=== PATIENT | female | born 1965 ===

== ENCOUNTER 2018-09-03 00:33 | Inpatient (IN) | payer MEDICAID ==
--- NOTE | 2018-09-03 00:58 | ED PDOC ---
HPI: Abdomen Time Seen by Provider: 09/03/18 00:36 Chief Complaint (Nursing): Abdominal Pain Chief Complaint (Provider): Abdominal Pain History Per: Other (Urgent care) Additional Complaint(s): 52 y/o female with history of gall stones and recently elevated liver enzymes presents to the ED for jaundice, onset x1 day ago. Patient has sever fatigue, myalgia, headache, chills, fever, and especially conjunctiva. Patient's history s per Urgent Care note. "Patient is also positive for Carlos's sign, has petechia in the hard palate, and has enlarged liver." as per pt she is scheduled to get surgery (cholecystectomy) at [facility] later this month but she couldnt wait that long because the jaundice just developed today. Past Medical History Reviewed: Historical Data, Nursing Documentation, Vital Signs Vital Signs: Last Vital Signs Temp 98.4 F 09/03/18 00:43 Pulse 94 H 09/03/18 00:43 Resp 16 09/03/18 00:43 BP 141/70 09/03/18 00:43 Pulse Ox 100 09/03/18 00:43 - Medical History PMH: Diabetes (recently diagnosed), Hypothyroidism Denies: Chronic Kidney Disease Other PMH: Gall Stones - Surgical History Other surgeries: Hysterectomy - Family History Family History: States: Unknown Family Hx - Social History Current smoker - smoking cessation education provided: No Alcohol: None Drugs: Denies - Home Medications Home Medications: Ambulatory Orders Medication Instructions Recorded Ergocalciferol (Vitamin D2) 50,000 unit PO TU 09/03/18 [Vitamin D2] Levothyroxine [Synthroid] 50 mcg PO DAILY 09/03/18 Omeprazole 40 mg PO DAILY PRN 09/03/18 - Allergies Allergies/Adverse Reactions: Allergies Allergy/AdvReac Type Severity Reaction Status Date / Time cortisone Allergy RASH Verified 12/12/15 13:17 piperacillin [From Zosyn] Allergy ITCHING Verified 09/04/18 19:08 tazobactam [From Zosyn] Allergy ITCHING Verified 09/04/18 19:08 Review of Systems ROS Statement: Except As Marked, All Systems Reviewed And Found Negative Constitutional: Positive for: Fever, Chills, Weakness (severe fatigue), Other (Diffuse myalgia) Eyes: Positive for: Conjunctivae Inflammation Skin: Positive for: Jaundice Neurological: Positive for: Headache Physical Exam - Reviewed Nursing Documentation Reviewed: Yes Vital Signs Reviewed: Yes - Physical Exam Appears: Positive for: Uncomfortable Head Exam: Positive for: ATRAUMATIC, NORMOCEPHALIC Skin: Positive for: Normal Color, Jaundice (diffuse) Eye Exam: Positive for: Normal appearance, Scleral icterus ENT: Positive for: Normal ENT Inspection, Other (dry mucous membranes) Neck: Positive for: Normal, Painless ROM, Supple Cardiovascular/Chest: Positive for: Regular Rate, Rhythm. Negative for: Murmur Respiratory: Positive for: Normal Breath Sounds. Negative for: Respiratory Distress Gastrointestinal/Abdominal: Positive for: Tenderness (RUQ and Epigastric) Extremity: Positive for: Normal ROM. Negative for: Pedal Edema, Deformity Neurologic/Psych: Positive for: Alert, Oriented. Negative for: Motor/Sensory Deficits - Laboratory Results Result Diagrams: 09/05/18 08:06 09/05/18 08:06 - ECG O2 Sat by Pulse Oximetry: 100 (RA) Pulse Ox Interpretation: Normal Medical Decision Making Medical Decision Making: Time: 01:01 Initial Impression: Jaundice, abdominal pain, fever rule out ascending cholangitis (known histoyr of gallstones) Initial Plan: * CT Abd pelvis * CMP * Lipase * CBC w/ diff * Morphine 4 mg * IV Fluids * Urine C&S * UA 02:56 US Findings: Enlarged liver measuring 18.1 cm. Diffuse thickening of the gallbladder measuring 6.8 mm. Cholelithiasis. Nondilated common bile duct measuring 5.2 mm. Unremarkable pancreas. Unremarkable aorta. Unremarkable right kidney measuring 13.7x5.1x6 cm. Impression: Cholelithiasis. Contracted gallbladder. Diffuse thickening of the wall of the gallbladder which is probably exaggerated by underdistention. 03:50 Total bilirubin is 5.6. LFT's are extremely elevated. 07:00 Patient care endorsed from provider to Dr. Enriquez pending CT Scribe Attestation: Documented by Rick Colby, acting as a scribe for Jyothi Mcgrath MD. Provider Scribe Attestation: All medical record entries made by the Scribe were at my direction and personally dictated by me. I have reviewed the chart and agree that the record accurately reflects my personal performance of the history, physical exam, medic al decision making, and the department course for this patient. I have also personally directed, reviewed, and agree with the discharge instructions and disposition. Disposition - Clinical Impression Clinical Impression: Abdominal pain - Patient ED Disposition Is Patient to be Admitted: Transfer of Care - Disposition Disposition: Transfer of Care Disposition Time: 07:00 Condition: STABLE Patient Signed Over To: Maty Enriquez
[2018-09-03] MEDS ORDERED: Sodium Chloride 0.9% 1,000 ML IV STA (01:02)
[2018-09-03] MEDS ORDERED: Piperacillin/Tazobact 4.5 GM in Sodium Chloride 0.9% 100 ML IVPB STA (01:07)
[2018-09-03] MEDS ORDERED: Morphine 4 MG/ML VIAL ONE ×4 (01:26→13:15)
[2018-09-03 01:31] LABS: BASO % 1.1 % (0.0-2.0); EOS # 0.1 K/uL (0.0-0.7); EOS % 2.4 % (0.0-4.0); HEMOGLOBIN 10.8 g/dL (12.0-16.0); LYMPH # 1.8 K/uL (1.0-4.3); LYMPH % 40.4 % (20.0-40.0); MEAN CELL VOLUME 93.1 fl (81.0-99.0); MEAN CORPUSCULAR HEMOGLOBIN 31.8 pg (27.0-31.0); MEAN CORPUSCULAR HGB CONC 34.1 g/dL (33.0-37.0); MEAN PLATELET VOLUME 10.8 fl (7.2-11.7); MONO # 0.4 K/uL (0.0-0.8); MONO % 9.6 % (0.0-10.0); NEUT # 2.1 K/uL (1.8-7.0); NEUT % 46.5 % (50.0-75.0); RBC 3.39 Mil/uL (3.80-5.20); RED CELL DISTRIBUTION WIDTH 16.8 % (11.5-14.5); WHITE BLOOD COUNT 4.5 K/uL (4.8-10.8)
[2018-09-03 02:13] LABS: ALB/GLOB RATIO 0.6 (1.0-2.1); ALBUMIN 3.4 g/dL (3.5-5.0); BLOOD UREA NITROGEN 9 mg/dl (7-17); CALCIUM 8.6 mg/dL (8.4-10.2); GFR NON-AFRICAN AMERICAN > 60; LIPASE 124 U/L (23-300)
[2018-09-03 02:51] LABS: ALT/SGPT 1138 U/L (9-52); AST/SGOT 978 U/L (14-36)
[2018-09-03 03:07] LABS: URINE BILIRUBIN SMALL (NEGATIVE); URINE BLOOD NEGATIVE (NEGATIVE); URINE CLARITY CLEAR (Clear); URINE COLOR YELLOW (YELLOW); URINE GLUCOSE (UA) NEGATIVE (NEGATIVE)
[2018-09-03 03:08] LABS: URINE LEUKOCYTE ESTERASE MODERATE Leu/uL (Negative); URINE PROTEIN NEGATIVE (NEGATIVE); URINE UROBILINOGEN 0.2 mg/dL (0.2-1.0)
[2018-09-03 03:10] LABS: URINE AMORPHOUS SEDIMENT FEW /ul (<OCC)
[2018-09-03 03:16] LABS: SQUAMOUS EPITHIAL 10 /hpf (0-5); URINE BACTERIA FEW (<OCC)
[2018-09-03] MEDS ORDERED: Iohexol 240 (50 ml) ONE (03:57)
[2018-09-03] MEDS ORDERED: Iohexol 240 (50 ml) PO ONE (04:01)
[2018-09-03] MEDS ORDERED: Sodium Chloride 0.9% 0 ML IV ONE (06:27)
[2018-09-03] MEDS ORDERED: Iohexol 300 100 ML IJ ONE ×2 (06:27→07:06)
[2018-09-03] MEDS ORDERED: Sodium Chloride 0.9% 50 ML IV ONE (07:06)
--- NOTE | 2018-09-03 07:43 | ED PDOC ---
- Laboratory Results Result Diagrams: 09/08/18 05:30 09/08/18 05:30 - ECG O2 Sat by Pulse Oximetry: 100 (RA) Pulse Ox Interpretation: Normal Medical Decision Making Medical Decision Makin:00 --Patient transferred to this provider pending CT Abd & Pelvis and reevaluation. CT Abd & Pelvis FINDINGS: LUNG BASES: The lung bases appear clear. No pleural effusions are seen. LIVER: Small amount of perihepatic and pelvic ascites. There is diffuse hepatic hypoattenuation compatible with fatty infiltration. The liver is enlarged, 22 cm. GALLBLADDER AND BILE DUCTS: The gallbladder contains multiple calcified gallstones and there is evidence of gallbladder wall thickening and large amount of pericholecystic fluid compatible with acute cholecystitis. PANCREAS: Unremarkable. SPLEEN: The spleen is enlarged measuring 17 cm. ADRENAL GLANDS: There is a 1.5 cm left adrenal nodule most compatible with an adenoma, confirmation with noncontrast CT is recommended. KIDNEYS, URETERS, AND BLADDER: The kidneys appear within normal limits. There is no hydronephrosis or hydroureter. No urinary calculi are seen. STOMACH AND BOWEL: Unremarkable appearance of the stomach and bowel. No evidence of bowel obstruction. No evidence suggesting enteritis or colitis. APPENDIX: No evidence of acute appendicitis on CT examination. PERITONEUM: No free air. LYMPH NODES: No lymphadenopathy is evident. REPRODUCTIVE: Status post complete hysterectomy. VASCULATURE: No evidence of abdominal aortic aneurysm. BONES: No aggressive appearing osseous lesion. No acute osseous pathology evident. IMPRESSION: 1. The gallbladder contains multiple calcified gallstones and there is evidence of gallbladder wall thickening and large amount of pericholecystic fluid compatible with acute cholecystitis. 2. Small amount of perihepatic and pelvic ascites. 3. There is diffuse hepatic hypoattenuation compatible with fatty infiltration. The liver is enlarged, 22 cm. 4. The spleen is enlarged measuring 17 cm. 5. There is a 1.5 cm left adrenal nodule most compatible with an adenoma, con firmation with noncontrast CT is recommended. 6. Status post complete hysterectomy. 12:12 --assistant to the vice president called. Scribe Attestation: Documented by Yumiko Zhong acting as a scribe for Maty Enriquez MD Provider Scribe Attestation: All medical record entries made by the Scribe were at my direction and personally dictated by me. I have reviewed the chart and agree that the record accurately reflects my personal performance of the history, physical exam, medical decision making, and the department course for this patient. I have also personally directed, reviewed, and agree with the discharge instructions and disposition. Disposition - Clinical Impression Clinical Impression: Acute cholecystitis - POA Present On Arrival: None - Disposition Disposition: Admitted as In-Patient Disposition Time: 12:19 Condition: STABLE
--- NOTE | 2018-09-03 09:19 | US ---
Date of service: 09/03/2018 HISTORY: rule out ascending cholangitis COMPARISON: None. TECHNIQUE: Sonographic evaluation of the right upper quadrant of the abdomen. FINDINGS: LIVER: Measures 18.1 cm in length. Normal echogenicity of the liver parenchyma. No mass. No intrahepatic bile duct dilatation. GALLBLADDER: There are multiple gallstones completely filling the gallbladder. There is diffuse increased gallbladder wall thickness which measures 7 mm, which could be related to underdistention. The sonographic Carlos sign is positive. No pericholecystic fluid. COMMON BILE DUCT: Measures 5.2 mm. No stones. No dilatation. PANCREAS: Unremarkable as visualized. No mass. No ductal dilatation. RIGHT KIDNEY: Measures 13.7 cm in length. Normal echogenicity. No calculus, mass, or hydronephrosis. AORTA: No aneurysmal dilatation. IVC: Unremarkable. OTHER FINDINGS: None . IMPRESSION: Cholelithiasis. Gallbladder is contracted which may exaggerate apparent wall thickness which could be related to underdistention The sonographic Carlos's sign is positive. Acute calculus cholecystitis cannot be entirely excluded. Clinical follow-up is advised. A preliminary report was provided by [employer].
[2018-09-03] MEDS ORDERED: Morphine 4 MG/ML VIAL IV STA ×2 (10:04→12:18)
--- NOTE | 2018-09-03 12:55 | CP.PCM.CON ---
History of Present Illness - History of Present Illness History of Present Illness: 52F with PMHx of fatty liver, pre DM, presents to [facility] ED with complaints of abdominal pain and jaundice. Patient states abdominal pain began yesterday. Patient became concerned when epigastric pain kept progressing and she became jaundiced. Patient also reports bilirubnuria. She was scheduled for a laparoscopic cholecystectomy at [facility] on 09/20/18. At time of examination patient denied headache, dizziness, chest pain, shortness of breath, diarrhea, dysuria. Reports generalized abdominal pain worse in epigastric region. PMH: as stated above PSurgHx: laparoscopic hysterectomy Allergies: Cortisone Fam Hx: non-contributory Review of Systems - Review of Systems Review of Systems: 10 pt ROS unremarkable except as stated in HPI Past Patient History - Past Social History Smoking Status: Never Smoked - CARDIAC Hx Cardiac Disorders: No - PULMONARY Hx Respiratory Disorders: No - NEUROLOGICAL Hx Neurological Disorder: No - HEENT Hx HEENT Problems: No - RENAL Hx Chronic Kidney Disease: No - ENDOCRINE/METABOLIC Hx Hypothyroidism: Yes - HEMATOLOGICAL/ONCOLOGICAL Hx Blood Disorders: No - INTEGUMENTARY Hx Dermatological Problems: No - MUSCULOSKELETAL/RHEUMATOLOGICAL Hx Musculoskeletal Disorders: No - GASTROINTESTINAL Hx Fatty Liver Disease: Yes Hx Gall Bladder Disease: Yes (gallstones) - GENITOURINARY/GYNECOLOGICAL Hx Genitourinary Disorders: No - PSYCHIATRIC Hx Psychophysiologic Disorder: No Hx Substance Use: No - SURGICAL HISTORY Hx Surgeries: Yes Hx Hysterectomy: Yes - ANESTHESIA Hx Anesthesia: Yes Hx Anesthesia Reactions: No Hx Malignant Hyperthermia: No Meds Allergies/Adverse Reactions: Allergies Allergy/AdvReac Type Severity Reaction Status Date / Time cortisone Allergy RASH Verified 12/12/15 13:17 Physical Exam - Constitutional Appears: Non-toxic, No Acute Distress Additional comments: jaundice - Head Exam Head Exam: NORMOCEPHALIC - Eye Exam Eye Exam: EOMI, Scleral icterus - ENT Exam ENT Exam: Mucous Membranes Dry Additional comments: sublingual jaundice - Respiratory Exam Respiratory Exam: NORMAL BREATHING PATTERN - Cardiovascular Exam Cardiovascular Exam: +S1, +S2 - GI/Abdominal Exam GI & Abdominal Exam: Soft, Tenderness. absent: Firm, Rigid Additional comments: + Muprhy's - Neurological Exam Neurological exam: Alert, Oriented x3 - Skin Skin Exam: Warm Additional comments: jaundice Results - Vital Signs Recent Vital Signs: Last Vital Signs Temp 98.4 F 09/03/18 10:21 Pulse 71 09/03/18 10:21 Resp 18 09/03/18 10:21 BP 138/64 09/03/18 10:21 Pulse Ox 100 09/03/18 12:14 - Labs Result Diagrams: 09/03/18 01:23 09/03/18 01:42 Labs: Laboratory Results - last 24 hr 09/03/18 09/03/18 09/03/18 01:23 01:42 02:35 WBC 4.5 L RBC 3.39 L Hgb 10.8 L Hct 31.5 L MCV 93.1 D MCH 31.8 H MCHC 34.1 RDW 16.8 H Plt Count 156 MPV 10.8 Neut % (Auto) 46.5 L Lymph % (Auto) 40.4 H Summit % (Auto) 9.6 Eos % (Auto) 2.4 Baso % (Auto) 1.1 Neut # (Auto) 2.1 Lymph # (Auto) 1.8 Summit # (Auto) 0.4 Eos # (Auto) 0.1 Baso # (Auto) 0.0 Sodium 137 Potassium 3.6 Chloride 103 Carbon Dioxide 24 Anion Gap 14 BUN 9 Creatinine 0.5 L Est GFR ( Amer) > 60 Est GFR (Non-Af Amer) > 60 POC Glucose (mg/dL) Random Glucose 110 H Calcium 8.6 Total Bilirubin 5.6 H AST 978 H ALT 1138 H Alkaline Phosphatase 350 H Total Protein 9.1 H Albumin 3.4 L Globulin 5.7 H Albumin/Globulin Ratio 0.6 L Lipase 124 Urine Color Yellow Urine Clarity Clear Urine pH 7.0 Ur Specific Forgan < 1.005 Urine Protein Negative Urine Glucose (UA) Negative Urine Ketones Negative Urine Blood Negative Urine Nitrate Negative Urine Bilirubin Small Urine Urobilinogen 0.2 Ur Leukocyte Esterase Moderate Urine Microscopic WBC 8 H Ur Squamous Epith Cells 10 H Amorphous Sediment Few H Urine Bacteria Few H 09/03/18 06:59 WBC RBC Hgb Hct MCV MCH MCHC RDW Plt Count MPV Neut % (Auto) Lymph % (Auto) Summit % (Auto) Eos % (Auto) Baso % (Auto) Neut # (Auto) Lymph # (Auto) Summit # (Auto) Eos # (Auto) Baso # (Auto) Sodium Potassium Chloride Carbon Dioxide Anion Gap BUN Creatinine Est GFR ( Amer) Est GFR (Non-Af Amer) POC Glucose (mg/dL) 98 Random Glucose Calcium Total Bilirubin AST ALT Alkaline Phosphatase Total Protein Albumin Globulin Albumin/Globulin Ratio Lipase Urine Color Urine Clarity Urine pH Ur Specific Forgan Urine Protein Urine Glucose (UA) Urine Ketones Urine Blood Urine Nitrate Urine Bilirubin Urine Urobilinogen Ur Leukocyte Esterase Urine Microscopic WBC Ur Squamous Epith Cells Amorphous Sediment Urine Bacteria Assessment & Plan - Assessment and Plan (Free Text) Assessment: 52F w/ acute on chronic cholecystitis Elevated LFTs Plan: -NPO -IVF -ABx -Anti-emetics prn -Analgesics prn -MRCP ordered -Recommend GI consult -Further recs per Dr. Faustino Garcia PGY3
[2018-09-03] MEDS ORDERED: Sodium Chloride 0.9% 1,000 ML IV SCH (13:00)
--- NOTE | 2018-09-03 13:10 | CT ---
Date of service: 09/03/2018 PROCEDURE: CT Abdomen and Pelvis with contrast HISTORY: Abdominal pain, jaundice COMPARISON: None available. TECHNIQUE: CT scan of the abdomen and pelvis was performed after administration of intravenous contrast. Oral contrast was administered. Coronal and sagittal reformatted images were obtained. Contrast dose: 95 cc Omnipaque 300 Radiation dose: Total exam DLP = 774.9 mGy-cm. This CT exam was performed using one or more of the following dose reduction techniques: Automated exposure control, adjustment of the mA and/or kV according to patient size, and/or use of iterative reconstruction technique. FINDINGS: LOWER THORAX: The visualized lungs are clear. LIVER: Mild hepatomegaly and fatty liver. No gross lesion or ductal dilatation. GALLBLADDER AND BILE DUCTS: There are multiple small calcified gallstones, wall thickening and enhancement and large amount of pericholecystic fluid. PANCREAS: Normal in size with homogeneous enhancement. No gross lesion or ductal dilatation. SPLEEN: Mild splenomegaly. Normal homogeneous enhancement. ADRENALS: The right adrenal gland is normal. There is a 1.8 cm indeterminate left adrenal gland nodule. KIDNEYS AND URETERS: Normal in size with homogeneous enhancement. No hydronephrosis. No solid mass. VASCULATURE: No aortic aneurysm. There are early aortic atherosclerotic calcifications present BOWEL: The small bowel loops are normal in caliber. There is fecalization of distal small bowel contents and large amount of stool in the colon consistent with constipation. No bowel wall thickening or obstruction. APPENDIX: Normal appendix. PERITONEUM: Small amount of perihepatic fluid and small pelvic ascites. No free air. LYMPH NODES: No enlarged lymph nodes. BLADDER: Well distended and normal in appearance. REPRODUCTIVE: The uterus is surgically absent. BONES: No acute fracture. Within normal limits for the patient's age. OTHER FINDINGS: None. IMPRESSION: 1. Acute calculus cholecystitis. 2. Indeterminate 1.8 cm left adenoid gland nodule. Dedicated CT/MRI scan of the abdomen without and with intravenous contrast with adrenal gland protocol is recommended for further evaluation. 3. Moderate hepatosplenomegaly and fatty liver. A preliminary report was provided by [employer].
--- NOTE | 2018-09-03 13:18 | CP.PCM.HP ---
History of Present Illness - History of Present Illness History of Present Illness: CC: complaints of abdominal pain X 1 day HPI: 52 y/o female with PMHx of fatty liver, cholelithiasis, hypothyroidism, and hyperlipidemia was seen and evaluated in the ED for abdominal pain, and jaundice, onset X 1 day. Patient describes the pain as sharp and intermittent, not exacerbated by food, at times alleviated by antacids. Patient states she went to an Urgent Care facility yesterday due to complaints of fever, myalgia, weakness, darker urine and conjunctival yellowing. She was told at the Urgent care that her liver was enlarged, and she needed to come to a hospital for further evaluation. Patient states she has history of gallstones, diagnosed 3 years ago. Patient states her symptoms have been worsening since May 2018, and patient was referred to general surgery, Dr. Harmon. She was scheduled for a laparoscopic cholecystectomy at [facility] on 09/20/18. Patient denies nausea, vomiting, shortness of breath, chest pain, diarrhea, or constipation at this time. Patient has recent lab work from 08/27/18, which shoes abnormal elevated total bilirubin 1.6, direct bilirubin 1.01, AST 642, and ALT 769, Alk Phos 364, negative Hepatitis panel. Patient is tolerating PO diet. Patient's last meal was [place] for dinner last night. Patient's last bowel movement was yesterday. PMD: Dr. Sorenson PSHx: Radical Hysterectomy with Bilateral Oophorectomy (due to multiple fibroids) Family Hx: mother- passed at age 70 due to pancreatic cancer, IDDM; father- passed at age 72 due to AL, sibling- IDDM and hypothyroidism, other sibling- NIDDM and hypertension Medications: as per med reconciliation Allergies: Cortisone- anaphylactic reaction to IV and PO Social Hx: denies tobacco use, cigarette use occasionally, denies EOTH use, denies illicit drug use Vitals in ED: 98.4 F, 94, 141/70, 16, 100% ED Course: F/U CBC/CMP F/U Blood and Urine Cultures GI Consult- Dr. Gracia Gen Surg consult- Dr. Harmon Pain management NSS IV Abx- Zosyn MRCP Ordered NPO Diet at this time Present on Admission - Present on Admission Any Indicators Present on Admission: No Review of Systems - Constitutional Constitutional: Fatigue, Fever, Malaise, Weakness. absent: Chills - EENT Eyes: absent: Blurred Vision, Change in Vision Nose/Mouth/Throat: Dry Mouth - Cardiovascular Cardiovascular: absent: Chest Pain, Diaphoresis, Dyspnea, Palpitations - Gastrointestinal Gastrointestinal: Abdominal Pain. absent: Constipation, Diarrhea, Nausea, Vomiting - Musculoskeletal Musculoskeletal: Myalgias. absent: Joint Swelling, Limited Range of Motion - Integumentary Integumentary: Jaundice - Neurological Neurological: absent: Dizziness, Numbness, Tingling Past Patient History - Past Social History Smoking Status: Never Smoked - CARDIAC Hx Cardiac Disorders: No - PULMONARY Hx Respiratory Disorders: No - NEUROLOGICAL Hx Neurological Disorder: No - HEENT Hx HEENT Problems: No - RENAL Hx Chronic Kidney Disease: No - ENDOCRINE/METABOLIC Hx Hypothyroidism: Yes - HEMATOLOGICAL/ONCOLOGICAL Hx Blood Disorders: No - INTEGUMENTARY Hx Dermatological Problems: No - MUSCULOSKELETAL/RHEUMATOLOGICAL Hx Musculoskeletal Disorders: No - GASTROINTESTINAL Hx Fatty Liver Disease: Yes Hx Gall Bladder Disease: Yes (gallstones) - GENITOURINARY/GYNECOLOGICAL Hx Genitourinary Disorders: No - PSYCHIATRIC Hx Psychophysiologic Disorder: No Hx Substance Use: No - SURGICAL HISTORY Hx Surgeries: Yes Hx Hysterectomy: Yes - ANESTHESIA Hx Anesthesia: Yes Hx Anesthesia Reactions: No Hx Malignant Hyperthermia: No Meds Allergies/Adverse Reactions: Allergies Allergy/AdvReac Type Severity Reaction Status Date / Time cortisone Allergy RASH Verified 12/12/15 13:17 Physical Exam - Constitutional Appears: Well, Non-toxic, No Acute Distress - Head Exam Head Exam: ATRAUMATIC, NORMOCEPHALIC - Eye Exam Eye Exam: Normal appearance Pupil Exam: NORMAL ACCOMODATION - ENT Exam ENT Exam: Mucous Membranes Dry - Neck Exam Neck exam: Positive for: Full Rom. Negative for: Tenderness - Respiratory Exam Respiratory Exam: Clear to Auscultation Bilateral, NORMAL BREATHING PATTERN. absent: Rales, Rhonchi, Wheezes - Cardiovascular Exam Cardiovascular Exam: REGULAR RHYTHM, +S1, +S2 - GI/Abdominal Exam GI & Abdominal Exam: Guarding Additional comments: + Carlos's - Rectal Exam Rectal Exam: Deferred - Extremities Exam Extremities exam: Positive for: full ROM, normal inspection. Negative for: pedal edema - Neurological Exam Neurological exam: Alert, Oriented x3 - Psychiatric Exam Psychiatric exam: Normal Affect, Normal Mood - Skin Skin Exam: Dry Additional comments: mild Jaundice to skin and icterus Results - Vital Signs Recent Vital Signs: Last Vital Signs Temp 98.4 F 09/03/18 10:21 Pulse 71 09/03/18 10:21 Resp 18 09/03/18 10:21 BP 138/64 09/03/18 10:21 Pulse Ox 100 09/03/18 12:14 - Labs Result Diagrams: 09/03/18 01:23 09/03/18 01:42 Labs: Laboratory Results - last 24 hr 09/03/18 09/03/18 09/03/18 01:23 01:42 02:35 WBC 4.5 L RBC 3.39 L Hgb 10.8 L Hct 31.5 L MCV 93.1 D MCH 31.8 H MCHC 34.1 RDW 16.8 H Plt Count 156 MPV 10.8 Neut % (Auto) 46.5 L Lymph % (Auto) 40.4 H [place] % (Auto) 9.6 Eos % (Auto) 2.4 Baso % (Auto) 1.1 Neut # (Auto) 2.1 Lymph # (Auto) 1.8 [place] # (Auto) 0.4 Eos # (Auto) 0.1 Baso # (Auto) 0.0 Sodium 137 Potassium 3.6 Chloride 103 Carbon Dioxide 24 Anion Gap 14 BUN 9 Creatinine 0.5 L Est GFR ( Amer) > 60 Est GFR (Non-Af Amer) > 60 POC Glucose (mg/dL) Random Glucose 110 H Calcium 8.6 Total Bilirubin 5.6 H AST 978 H ALT 1138 H Alkaline Phosphatase 350 H Total Protein 9.1 H Albumin 3.4 L Globulin 5.7 H Albumin/Globulin Ratio 0.6 L Lipase 124 Urine Color Yellow Urine Clarity Clear Urine pH 7.0 Ur Specific [place] < 1.005 Urine Protein Negative Urine Glucose (UA) Negative Urine Ketones Negative Urine Blood Negative Urine Nitrate Negative Urine Bilirubin Small Urine Urobilinogen 0.2 Ur Leukocyte Esterase Moderate Urine Microscopic WBC 8 H Ur Squamous Epith Cells 10 H Amorphous Sediment Few H Urine Bacteria Few H 09/03/18 06:59 WBC RBC Hgb Hct MCV MCH MCHC RDW Plt Count MPV Neut % (Auto) Lymph % (Auto) [place] % (Auto) Eos % (Auto) Baso % (Auto) Neut # (Auto) Lymph # (Auto) [place] # (Auto) Eos # (Auto) Baso # (Auto) Sodium Potassium Chloride Carbon Dioxide Anion Gap BUN Creatinine Est GFR ( Amer) Est GFR (Non-Af Amer) POC Glucose (mg/dL) 98 Random Glucose Calcium Total Bilirubin AST ALT Alkaline Phosphatase Total Protein Albumin Globulin Albumin/Globulin Ratio Lipase Urine Color Urine Clarity Urine pH Ur Specific [place] Urine Protein Urine Glucose (UA) Urine Ketones Urine Blood Urine Nitrate Urine Bilirubin Urine Urobilinogen Ur Leukocyte Esterase Urine Microscopic WBC Ur Squamous Epith Cells Amorphous Sediment Urine Bacteria Assessment & Plan - Assessment and Plan (Free Text) Assessment: 52 y/o female with PMHx of of fatty liver, gallstones, hypothyroidism, and hyperlipidemia was seen and evaluated in the ED for abdominal pain and jaundice onset X 1 day. Patient has hx of symptomatic cholelithiasis, was scheduled for surgery 09/20/[address] Harmon. Patient with jaundice, scleral icterus, elevated LFTs, pending MRCP. Plan: Acute Gallstone Cholecystitis r/o obstruction - Abdominal CT- acute calculus cholecystitis, indeterminate left adenoid gland nodule, moderate hepatosplenomegaly and fatty liver - Gallbladder US- cholelithiasis, gladder with wall thickness, positive carlos's sign, acute calculus cholecystitis cannot be excluded - AST- 978, ALT- 1138, Total Bilirubin- 5.6, outpatient labs showed negative Hepatitis panel - F/U CBC/CMP, Lipid Panel - F/U Blood and Urine Cultures - GI Consult- Dr. Gracia - Gen Surg consult- Dr. Harmon - MRCP Ordered - Pain management - NSS - Start IV Abx- Zosyn day #1 - NPO Diet at this time Urinary Tract Infection - asymptomatic, acute, positive Urine sample - Urine Culture- Pending - continue IV Abx Hypothyroidism - asymptomatic, chronic - continue home medication Levothyroxine 50 mcg PO DAILY Diet - NPO at this time DVT Prophylaxis - SCDs for now Code status - Full code - Date & Time Date: 09/03/18 Time: 14:34
[2018-09-03] MEDS: Dextrose 5%/Lactated Ringer's 1,000 ML IV SCH ×2 (14:03→22:00)
--- NOTE | 2018-09-03 15:31 | MRI ---
MRCP Indication: Acute rajesh, elevated T bili, elevated LFTs Technique: Multiplanar, multisequence MR images of the abdomen were obtained, including heavily T2 weighted MRCP images of the biliary system. Rotating maximum intensity projection images of the biliary system were generated. A total of images were submitted for review. Comparison: CT abdomen and pelvis with contrast performed 09/03/18, gallbladder ultrasound performed 09/03/18 Findings: Hepatomegaly. No filling defects seen within the common bile duct which appears within normal limits of caliber. Pericholecystic edema/gallbladder-wall thickening. Cholelithiasis. There is no intrahepatic biliary ductal dilatation. Distal most common bile duct is not visualized. Visualized common bile duct appears within normal limits of caliber measuring approximately 3 mm. Filling defect is not identified within the visualized portions of the CBD. The pancreatic duct appears within normal limits of caliber. No filling defects are seen in the pancreatic duct. Splenomegaly. 1.3 x 1.1 cm left adrenal gland nodule, indeterminate. The limited visualized noncontrast adrenal glands, kidneys, spleen, and pancreas appear otherwise unremarkable. No bulky abdominal lymphadenopathy is seen. No ascites. No acute osseous abnormality is detected. Impression: Cholelithiasis. Pericholecystic edema/wall thickening. Correlate clinically for acute cholecystitis. Common bile duct is not visualized at its most distal aspect and distal stone or stricture cannot be excluded. Common bile duct does not appear dilated and no evidence of focal filling defect within the visualized portions of the more proximal common bile duct. Hepatomegaly. Splenomegaly. 1.3 x 1.1 cm left adrenal gland nodule, indeterminate.
[2018-09-03 15:52] LABS: HDL CHOLESTEROL 19 MG/DL (30-70)
[2018-09-03 16:02] LABS: LDL CHOLESTEROL 76 mg/dL (0-129)
--- NOTE | 2018-09-03 16:11 | CP.PCM.CON ---
History of Present Illness - History of Present Illness History of Present Illness: Agree with the medical or surgical instrument maker's note. Additionally pt reports her pain radiates to the right side of her back and neck. She reports the abdominal pain became apparent last night, described as a pulsating constant pain, and earlier in the day she felt body aches and fatigued. LBM: 09/02/18 in AM and normal. She reports having pruritus since yesterday. 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 Pt will eventually need surgery, however Bili elevated, needs GI work up first and Bili to improve prior to surgical intervention. Keep NPO IVF fluids Continue abx GI consulted Monitor labs Pain meds prn. Past Patient History - Past Social History Smoking Status: Never Smoked - CARDIAC Hx Cardiac Disorders: No - PULMONARY Hx Respiratory Disorders: No - NEUROLOGICAL Hx Neurological Disorder: No - HEENT Hx HEENT Problems: No - RENAL Hx Chronic Kidney Disease: No - ENDOCRINE/METABOLIC Hx Endocrine Disorders: Yes - HEMATOLOGICAL/ONCOLOGICAL Hx Blood Disorders: No - INTEGUMENTARY Hx Dermatological Problems: No - MUSCULOSKELETAL/RHEUMATOLOGICAL Hx Musculoskeletal Disorders: No - GASTROINTESTINAL Hx Fatty Liver Disease: Yes Hx Gall Bladder Disease: Yes (gallstones) - GENITOURINARY/GYNECOLOGICAL Hx Genitourinary Disorders: No - PSYCHIATRIC Hx Psychophysiologic Disorder: No - SURGICAL HISTORY Hx Surgeries: Yes Hx Hysterectomy: Yes - ANESTHESIA Hx Anesthesia: Yes Hx Anesthesia Reactions: No Hx Malignant Hyperthermia: No Meds Allergies/Adverse Reactions: Allergies Allergy/AdvReac Type Severity Reaction Status Date / Time cortisone Allergy RASH Verified 12/12/15 13:17 - Medications Medications: Current Medications Hydromorphone HCl (Dilaudid) 1 mg IVP Q4 PRN PRN Reason: Pain, severe (8-10) Piperacillin Sod/Tazobactam (Sod 3.375 gm/ Sodium Chloride) 100 mls @ 100 mls/hr IVPB Q6 [facility]; Protocol Dextrose/Lactated Ringer's (Dextrose 5%/Lactated Ringer's) 1,000 mls @ 125 mls/hr IV .Q8H [facility] Stop: 09/04/18 13:00 Last Admin: 09/03/18 14:03 Dose: 125 mls/hr Levothyroxine Sodium (Synthroid) 50 mcg PO DAILY@0630 [facility] Ondansetron HCl (Zofran Inj) 4 mg IVP Q4 PRN PRN Reason: Nausea/Vomiting Pantoprazole Sodium (Protonix Inj) 40 mg IVP DAILY [facility] Last Admin: 09/03/18 13:52 Dose: 40 mg Results - Vital Signs Recent Vital Signs: Last Vital Signs Temp 99.2 F 09/03/18 15:32 Pulse 74 09/03/18 15:32 Resp 18 09/03/18 15:32 BP 128/64 09/03/18 15:32 Pulse Ox 98 09/03/18 15:25 - Labs Result Diagrams: 09/03/18 01:23 09/03/18 01:42 Labs: Laboratory Results - last 24 hr 09/03/18 09/03/18 09/03/18 01:23 01:42 02:35 WBC 4.5 L RBC 3.39 L Hgb 10.8 L Hct 31.5 L MCV 93.1 D MCH 31.8 H MCHC 34.1 RDW 16.8 H Plt Count 156 MPV 10.8 Neut % (Auto) 46.5 L Lymph % (Auto) 40.4 H [place] % (Auto) 9.6 Eos % (Auto) 2.4 Baso % (Auto) 1.1 Neut # (Auto) 2.1 Lymph # (Auto) 1.8 [place] # (Auto) 0.4 Eos # (Auto) 0.1 Baso # (Auto) 0.0 Sodium 137 Potassium 3.6 Chloride 103 Carbon Dioxide 24 Anion Gap 14 BUN 9 Creatinine 0.5 L Est GFR ( Amer) > 60 Est GFR (Non-Af Amer) > 60 POC Glucose (mg/dL) Random Glucose 110 H Calcium 8.6 Total Bilirubin 5.6 H AST 978 H ALT 1138 H Alkaline Phosphatase 350 H Total Protein 9.1 H Albumin 3.4 L Globulin 5.7 H Albumin/Globulin Ratio 0.6 L Triglycerides Cholesterol LDL Cholesterol Direct HDL Cholesterol Lipase 124 Urine Color Yellow Urine Clarity Clear Urine pH 7.0 Ur Specific [place] < 1.005 Urine Protein Negative Urine Glucose (UA) Negative Urine Ketones Negative Urine Blood Negative Urine Nitrate Negative Urine Bilirubin Small Urine Urobilinogen 0.2 Ur Leukocyte Esterase Moderate Urine Microscopic WBC 8 H Ur Squamous Epith Cells 10 H Amorphous Sediment Few H Urine Bacteria Few H 09/03/18 09/03/18 06:59 15:25 WBC RBC Hgb Hct MCV MCH MCHC RDW Plt Count MPV Neut % (Auto) Lymph % (Auto) [place] % (Auto) Eos % (Auto) Baso % (Auto) Neut # (Auto) Lymph # (Auto) [place] # (Auto) Eos # (Auto) Baso # (Auto) Sodium Potassium Chloride Carbon Dioxide Anion Gap BUN Creatinine Est GFR ( Amer) Est GFR (Non-Af Amer) POC Glucose (mg/dL) 98 Random Glucose Calcium Total Bilirubin AST ALT Alkaline Phosphatase Total Protein Albumin Globulin Albumin/Globulin Ratio Triglycerides 177 H Cholesterol 166 LDL Cholesterol Direct 76 HDL Cholesterol 19 L Lipase Urine Color Urine Clarity Urine pH Ur Specific [place] Urine Protein Urine Glucose (UA) Urine Ketones Urine Blood Urine Nitrate Urine Bilirubin Urine Urobilinogen Ur Leukocyte Esterase Urine Microscopic WBC Ur Squamous Epith Cells Amorphous Sediment Urine Bacteria
[2018-09-03] MEDS: Piperacillin/Tazobact 3.375 GM in Sodium Chloride 0.9% 100 ML IVPB SCH ×2 (17:56→21:20)
[2018-09-03 21:02] LABS: HEPATITIS B SURFACE AG Negative (NEGATIVE)
[2018-09-03 21:08] LABS: HEPATITIS A IGM NEGATIVE (NEGATIVE); HEPATITIS B CORE AB NEGATIVE (NEGATIVE)
[2018-09-03 21:20] LABS: HEPATITIS C ANTIBODY NEGATIVE (NEGATIVE)
[2018-09-03] MEDS ORDERED: Alum-Mag Hydrox-Simethicone Susp (30 mL) PO ONE (22:31)
[2018-09-04] MEDS: Piperacillin/Tazobact 3.375 GM in Sodium Chloride 0.9% 100 ML IVPB SCH ×3 (04:45→17:13)
[2018-09-04] MEDS: Dextrose 5%/Lactated Ringer's 1,000 ML IV SCH ×3 (04:47→12:32)
[2018-09-04] MEDS: Levothyroxine 50 MCG TAB PO SCH (05:52)
[2018-09-04 06:41] LABS: BASO % 0.4 % (0.0-2.0); EOS # 0.1 K/uL (0.0-0.7); EOS % 2.1 % (0.0-4.0); HEMOGLOBIN 10.3 g/dL (12.0-16.0); LYMPH # 1.8 K/uL (1.0-4.3); LYMPH % 42.9 % (20.0-40.0); MEAN CELL VOLUME 94.4 fl (81.0-99.0); MEAN CORPUSCULAR HEMOGLOBIN 31.4 pg (27.0-31.0); MEAN CORPUSCULAR HGB CONC 33.2 g/dL (33.0-37.0); MONO # 0.3 K/uL (0.0-0.8); MONO % 6.6 % (0.0-10.0); NRBC % 0.1 % (0.0-0.0); RBC 3.27 Mil/uL (3.80-5.20); RED CELL DISTRIBUTION WIDTH 16.8 % (11.5-14.5); WHITE BLOOD COUNT 4.2 K/uL (4.8-10.8)
[2018-09-04 06:55] LABS: ALB/GLOB RATIO 0.6 (1.0-2.1); ALBUMIN 3.2 g/dL (3.5-5.0); BLOOD UREA NITROGEN 9 mg/dl (7-17); CALCIUM 8.7 mg/dL (8.4-10.2); GFR NON-AFRICAN AMERICAN > 60
[2018-09-04 07:05] LABS: AST/SGOT 1150 U/L (14-36)
[2018-09-04 07:09] LABS: ALT/SGPT 1116 U/L (9-52)
--- NOTE | 2018-09-04 07:59 | CP.PCM.PN ---
<Tony Wilder - Last Filed: 09/04/18 07:56> Subjective - Date & Time of Evaluation Date of Evaluation: 09/04/18 Time of Evaluation: 07:15 - Subjective Subjective: Patient seen and examined. Reports abdominal pain has improved. Denies fever/chills. Denies nausea/vomiting. Stated she felt dizziness and developed a headache with administration of morphine. Objective - Vital Signs/Intake and Output Vital Signs (last 24 hours): Temp Pulse Resp BP Pulse Ox 98 F 69 19 104/59 L 96 09/04/18 00:10 09/04/18 00:10 09/04/18 00:10 09/04/18 00:10 09/04/18 00:10 - Medications Medications: Current Medications Hydromorphone HCl (Dilaudid) 0.5 mg IVP Q4 PRN PRN Reason: Pain, moderate (4-7) Piperacillin Sod/Tazobactam (Sod 3.375 gm/ Sodium Chloride) 100 mls @ 100 mls/hr IVPB Q6 [facility]; Protocol Last Admin: 09/04/18 04:45 Dose: 100 mls/hr Dextrose/Lactated Ringer's (Dextrose 5%/Lactated Ringer's) 1,000 mls @ 125 mls/hr IV .Q8H [facility] Stop: 09/04/18 13:00 Last Admin: 09/04/18 04:47 Dose: 125 mls/hr Levothyroxine Sodium (Synthroid) 50 mcg PO DAILY@0630 [facility] Last Admin: 09/04/18 05:52 Dose: Not Given Ondansetron HCl (Zofran Inj) 4 mg IVP Q4 PRN PRN Reason: Nausea/Vomiting Last Admin: 09/03/18 17:57 Dose: 4 mg Pantoprazole Sodium (Protonix Inj) 40 mg IVP DAILY [facility] Last Admin: 09/03/18 13:52 Dose: 40 mg - Labs Labs: 09/04/18 05:50 09/04/18 05:50 - Constitutional Appears: Non-toxic, No Acute Distress - Eye Exam Eye Exam: Scleral icterus - ENT Exam ENT Exam: Mucous Membranes Dry - Respiratory Exam Respiratory Exam: NORMAL BREATHING PATTERN - Cardiovascular Exam Cardiovascular Exam: +S1, +S2 - GI/Abdominal Exam GI & Abdominal Exam: Soft. absent: Distended, Firm, Guarding, Rigid, Tenderness, Rebound - Neurological Exam Neurological Exam: Alert, Awake, Oriented x3 - Psychiatric Exam Psychiatric exam: Normal Mood - Skin Skin Exam: Dry, Intact, Warm Assessment and Plan - Assessment and Plan (Free Text) Assessment: 52F w/ acute on chronic cholecystitis transaminitis Plan: -NPO -IVF -ABx -C/w Analgesic/Anti-emetics -F/u ERCP -Will plan for surgery once LFT's are close to normalizing -Further recs per Dr. Faustino Garcia PGY3 <Marc Corrales - Last Filed: 09/04/18 11:20> Objective - Vital Signs/Intake and Output Vital Signs (last 24 hours): Temp Pulse Resp BP Pulse Ox 98.6 F 61 20 110/64 96 09/04/18 08:56 09/04/18 08:56 09/04/18 08:56 09/04/18 08:56 09/04/18 08:56 - Medications Medications: Current Medications Hydromorphone HCl (Dilaudid) 0.5 mg IVP Q4 PRN PRN Reason: Pain, moderate (4-7) Piperacillin Sod/Tazobactam (Sod 3.375 gm/ Sodium Chloride) 100 mls @ 100 mls/hr IVPB Q6 [facility]; Protocol Last Admin: 09/04/18 09:29 Dose: 100 mls/hr Dextrose/Lactated Ringer's (Dextrose 5%/Lactated Ringer's) 1,000 mls @ 125 mls/hr IV .Q8H [facility] Stop: 09/04/18 13:00 Last Admin: 09/04/18 09:28 Dose: 125 mls/hr Levothyroxine Sodium (Synthroid) 50 mcg PO DAILY@0630 [facility] Last Admin: 09/04/18 05:52 Dose: Not Given Ondansetron HCl (Zofran Inj) 4 mg IVP Q4 PRN PRN Reason: Nausea/Vomiting Last Admin: 09/03/18 17:57 Dose: 4 mg Pantoprazole Sodium (Protonix Inj) 40 mg IVP DAILY [facility] Last Admin: 09/04/18 09:30 Dose: 40 mg - Labs Labs: 09/04/18 05:50 09/04/18 05:50 Assessment and Plan - Assessment and Plan (Free Text) Plan: pt seen at bedside, abdominal pain much improved, no nausea or vomiting. afebrile, Tbili 6.7, elevated LFTs. abd: soft, NT, ND, -murphys a/p NPO IVF trend LFTs will monitor Tbili needs to trend down prior to surgery
--- NOTE | 2018-09-04 08:40 | CON ---
DATE: 09/03/2018 HISTORY OF PRESENT ILLNESS: This is a 52-year-old female with history of fatty liver, cholelithiasis, hypothyroidism, hyperlipidemia. She is brought in for nausea and vomiting, lasting for the past couple days or so, epigastric discomfort. The nausea and vomiting now resolved. No diarrhea. At some point, she is scheduled for a cholecystectomy later this month and now come here for LFTs and pain as well. Currently, the patient is lying in bed comfortable, in no apparent distress. PAST MEDICAL HISTORY: As above. SURGICAL HISTORY: As above. MEDICATIONS: Have been reviewed. REVIEW OF SYSTEMS: All other systems are reviewed. Negative apart from HPI. PHYSICAL EXAMINATION: VITAL SIGNS: Here in the hospital, grossly unremarkable. GENERAL: This is a pleasant middle-aged male, lying in bed comfortably, in no apparent distress. HEENT: Head is normocephalic and atraumatic. Eyes, pupils are equally reactive to light bilaterally. No pallor. No icterus. NECK: Supple. Normal range of motion. No lymphadenopathy appreciated. LUNGS: Coarse breath sounds bilaterally. HEART: S1 and S2. Regular rate and rhythm. No murmurs appreciated. ABDOMEN: Soft. Nontender. No rebound. No guarding. RECTAL: Deferred. EXTREMITIES: Pulses felt bilaterally. SKIN: Warm, dry and intact. NEUROLOGIC: A and O x3. LABORATORY DATA: All labs and radiology have been reviewed. Labs include a WBC 4.5, hemoglobin 10.8, hematocrit 31.5, platelets . AST 970, ALT 1138, alk phos 250. Albumin 3.4. Ultrasound showed multiple gallstones, enlarged gallbladder fluid. ASSESSMENT AND PLAN: This is a 52-year-old female with what appears to be cholecystitis and elevated liver function tests, plan for magnetic resonance cholangiopancreatography. We will plan for endoscopic retrograde cholangiopancreatography if magnetic resonance cholangiopancreatography positive. Surgical consult is appreciated. N.p.o. for now, antibiotics, pain control. Thank you for the consult. Catrachito Gracia MD/ PhD cc: [facility] # [id number]
--- NOTE | 2018-09-04 09:05 | CP.PCM.PN ---
Subjective - Date & Time of Evaluation Date of Evaluation: 09/04/18 Time of Evaluation: 09:04 - Subjective Subjective: no overnight events Objective - Vital Signs/Intake and Output Vital Signs (last 24 hours): Temp Pulse Resp BP Pulse Ox 98.6 F 61 20 110/64 96 09/04/18 08:56 09/04/18 08:56 09/04/18 08:56 09/04/18 08:56 09/04/18 08:56 - Medications Medications: Current Medications Hydromorphone HCl (Dilaudid) 0.5 mg IVP Q4 PRN PRN Reason: Pain, moderate (4-7) Piperacillin Sod/Tazobactam (Sod 3.375 gm/ Sodium Chloride) 100 mls @ 100 mls/hr IVPB Q6 [facility]; Protocol Last Admin: 09/04/18 04:45 Dose: 100 mls/hr Dextrose/Lactated Ringer's (Dextrose 5%/Lactated Ringer's) 1,000 mls @ 125 mls/hr IV .Q8H [facility] Stop: 09/04/18 13:00 Last Admin: 09/04/18 04:47 Dose: 125 mls/hr Levothyroxine Sodium (Synthroid) 50 mcg PO DAILY@0630 [facility] Last Admin: 09/04/18 05:52 Dose: Not Given Ondansetron HCl (Zofran Inj) 4 mg IVP Q4 PRN PRN Reason: Nausea/Vomiting Last Admin: 09/03/18 17:57 Dose: 4 mg Pantoprazole Sodium (Protonix Inj) [address] [facility] Last Admin: 09/03/18 13:52 Dose: 40 mg - Labs Labs: 09/04/18 05:50 09/04/18 05:50 - Eye Exam Eye Exam: Scleral icterus - Neck Exam Neck Exam: Normal Inspection - Respiratory Exam Respiratory Exam: Clear to Ausculation Bilateral, NORMAL BREATHING PATTERN - Cardiovascular Exam Cardiovascular Exam: REGULAR RHYTHM - GI/Abdominal Exam GI & Abdominal Exam: Soft, Normal Bowel Sounds Assessment and Plan - Assessment and Plan (Free Text) Assessment: 52 yo female with acute cholecystitis lft trending up, but likely plateau mrcp negative hep panel negative cholecystectomy once bale
--- NOTE | 2018-09-04 09:15 | CP.PCM.PN ---
Subjective - Date & Time of Evaluation Date of Evaluation: 09/04/18 Time of Evaluation: 09:03 - Subjective Subjective: 52 y/o female with PMHx of fatty liver, cholelithiasis, hypothyroidism, and hyperlipidemia was seen and evaluated at bedside for abdominal pain, and jaundice onset 2 days. Patient reports her abdominal pain has improved. Patient reports episode of dizziness and headache with administration of morphine. Patient denies fever, chills, shortness of breath, nausea or vomiting. Objective - Vital Signs/Intake and Output Vital Signs (last 24 hours): Temp Pulse Resp BP Pulse Ox 98.6 F 61 20 110/64 96 09/04/18 08:56 09/04/18 08:56 09/04/18 08:56 09/04/18 08:56 09/04/18 08:56 - Medications Medications: Current Medications Hydromorphone HCl (Dilaudid) 0.5 mg IVP Q4 PRN PRN Reason: Pain, moderate (4-7) Piperacillin Sod/Tazobactam (Sod 3.375 gm/ Sodium Chloride) 100 mls @ 100 mls/hr IVPB Q6 COUNTS INCLUDE 234 BEDS AT THE [facility]; Protocol Last Admin: 09/04/18 04:45 Dose: 100 mls/hr Dextrose/Lactated Ringer's (Dextrose 5%/Lactated Ringer's) 1,000 mls @ 125 mls/hr IV .Q8H COUNTS INCLUDE 234 BEDS AT THE [facility] Stop: 09/04/18 13:00 Last Admin: 09/04/18 04:47 Dose: 125 mls/hr Levothyroxine Sodium (Synthroid) 50 mcg PO DAILY@0630 COUNTS INCLUDE 234 BEDS AT THE [facility] Last Admin: 09/04/18 05:52 Dose: Not Given Ondansetron HCl (Zofran Inj) 4 mg IVP Q4 PRN PRN Reason: Nausea/Vomiting Last Admin: 09/03/18 17:57 Dose: 4 mg Pantoprazole Sodium (Protonix Inj) 40 mg IVP DAILY COUNTS INCLUDE 234 BEDS AT THE [facility] Last Admin: 09/03/18 13:52 Dose: 40 mg - Labs Labs: 09/04/18 05:50 09/04/18 05:50 - Constitutional Appears: Well, Non-toxic, No Acute Distress - Head Exam Head Exam: ATRAUMATIC, NORMOCEPHALIC - Eye Exam Eye Exam: Normal appearance, PERRL Additional comments: + scleral icterus - Cardiovascular Exam Cardiovascular Exam: REGULAR RHYTHM, +S1, +S2 - GI/Abdominal Exam GI & Abdominal Exam: Tenderness, Normal Bowel Sounds Additional comments: + Carlos's - Rectal Exam Rectal Exam: Deferred - Extremities Exam Extremities Exam: Full ROM. absent: Pedal Edema - Back Exam Back Exam: absent: CVA tenderness (L), CVA tenderness (R) - Neurological Exam Neurological Exam: Alert, Awake, Oriented x3 - Psychiatric Exam Psychiatric exam: Normal Affect, Normal Mood Assessment and Plan - Assessment and Plan (Free Text) Assessment: 52 y/o female with PMHx of of fatty liver, gallstones, hypothyroidism, and hyperlipidemia was seen and evaluated in the ED for abdominal pain and jaundice onset X 2 days. Patient has hx of symptomatic cholelithiasis, was scheduled for surgery 09/20/[address] Harmon. Patient with jaundice, scleral icterus, elevated LFTs. Plan: Acute Gallstone Cholecystitis r/o obstruction - Abdominal CT- acute calculus cholecystitis, indeterminate left adenoid gland nodule, moderate hepatosplenomegaly and fatty liver - Gallbladder US- cholelithiasis, gladder with wall thickness, positive carlos's sign, acute calculus cholecystitis cannot be excluded - MRCP- cholelithiasis, pericholecystic edema/wall thickening, common bile duct not visualized at its distal aspect, and distal stone cannot be excluded, no dilation or evidence of focal filling within portions of the more proximal CBD - AST- 978 to 1150, ALT- 1138 to 1116, Total Bilirubin- 5.6 to 6.7 -- all trending up - Hep Panel- Negative - Blood Cultures- pending, no growth after 24 hours - GI Consult- Dr. Gracia, recommendations appreciated - Gen Surg consult- as per surgery- Will plan for surgery once LFT's are close to normalizing, NPO diet, IVF, continue Abx - Start IV Abx- Zosyn day #2 - NPO Diet at this time Urinary Tract Infection - asymptomatic, acute, positive Urine sample - Urine Culture- Pending - continue IV Abx Hyperlipidemia - Lipid Panel- elevated triglycerides 177 - continue to monitor Hypothyroidism - asymptomatic, chronic - continue home medication Levothyroxine 50 mcg PO DAILY DVT Prophylaxis - SCDs for now
[2018-09-04] MEDS ORDERED: DiphenhydrAMINE 50 mg/ml Inj IVP STA (17:19)
[2018-09-04] MEDS ORDERED: methylPREDNISolone 125 MG in Sodium Chloride 0.9% 50 ML IVPB ONE (17:30)
[2018-09-05] MEDS: Dextrose 5%/Lactated Ringer's 1,000 ML IV SCH ×4 (01:11→17:26)
[2018-09-05] MEDS: Levothyroxine 50 MCG TAB PO SCH (05:34)
--- NOTE | 2018-09-05 08:13 | CP.PCM.PN ---
<Jaxson Benson - Last Filed: 09/05/18 08:14> Subjective - Date & Time of Evaluation Date of Evaluation: 09/05/18 Time of Evaluation: 08:11 - Subjective Subjective: SURGERY NOTE FOR DR. LATIF 52F seen and examined at bedside. Patient tolerating clear liquid diet. State abdominal pain is controlled with medication, denies any nausea or vomiting. Antibiotics changed yesterday due to reaction to penicillin. Objective - Vital Signs/Intake and Output Vital Signs (last 24 hours): Temp Pulse Resp BP Pulse Ox 98.5 F 65 19 104/65 98 09/05/18 00:19 09/05/18 00:19 09/05/18 00:19 09/05/18 00:19 09/05/18 00:19 - Medications Medications: Current Medications Hydromorphone HCl (Dilaudid) 0.5 mg IVP Q4 PRN PRN Reason: Pain, moderate (4-7) Ciprofloxacin (Cipro 400mg/200ml Dsw) 400 mg in 200 mls @ 200 mls/hr IVPB Q12 [facility]; Protocol Dextrose/Lactated Ringer's (Dextrose 5%/Lactated Ringer's) 1,000 mls @ 125 mls/hr IV .Q8H [facility] Stop: 09/06/18 00:52 Last Admin: 09/05/18 01:11 Dose: 125 mls/hr Metronidazole (Flagyl 500mg/100ml Ns) 100 mls @ 100 mls/hr IVPB Q8 [facility]; Protocol Ibuprofen (Motrin Tab) 600 mg PO Q6 PRN PRN Reason: Headache Last Admin: 09/04/18 12:21 Dose: 600 mg Levothyroxine Sodium (Synthroid) 50 mcg PO DAILY@0630 [facility] Last Admin: 09/05/18 05:34 Dose: 50 mcg Ondansetron HCl (Zofran Inj) 4 mg IVP Q4 PRN PRN Reason: Nausea/Vomiting Last Admin: 09/03/18 17:57 Dose: 4 mg Pantoprazole Sodium (Protonix Inj) 40 mg IVP DAILY [facility] Last Admin: 09/04/18 09:30 Dose: 40 mg - Labs Labs: 09/04/18 05:50 09/04/18 05:50 - Constitutional Appears: Non-toxic, No Acute Distress - Respiratory Exam Respiratory Exam: NORMAL BREATHING PATTERN - Cardiovascular Exam Cardiovascular Exam: REGULAR RHYTHM, +S1, +S2 - GI/Abdominal Exam GI & Abdominal Exam: Soft, Tenderness (moderately diffusely tender). absent: Distended, Firm, Guarding, Rigid, Rebound - Neurological Exam Neurological Exam: Alert, Awake - Skin Skin Exam: Dry, Intact, Warm Additional comments: jaundice Assessment and Plan - Assessment and Plan (Free Text) Assessment: 52F with cholecysytitis and concern for choledocholithiasis, Transaminitis Plan: Continue liquid diet IVF as needed Pain control Continue antibiotics Awaiting AM labs Monitor trend of LFTs Further recs discuss with Dr. Faustino Benson, PGY3 <Marc Corrales - Last Filed: 09/05/18 09:12> Objective - Vital Signs/Intake and Output Vital Signs (last 24 hours): Temp Pulse Resp BP Pulse Ox 98.2 F 69 20 100/60 95 09/05/18 08:12 09/05/18 08:12 09/05/18 08:12 09/05/18 08:12 09/05/18 08:12 - Medications Medications: Current Medications Hydromorphone HCl (Dilaudid) 0.5 mg IVP Q4 PRN PRN Reason: Pain, moderate (4-7) Ciprofloxacin (Cipro 400mg/200ml Dsw) 400 mg in 200 mls @ 200 mls/hr IVPB Q12 [facility]; Protocol Dextrose/Lactated Ringer's (Dextrose 5%/Lactated Ringer's) 1,000 mls @ 125 mls/hr IV .Q8H [facility] Stop: 09/06/18 00:52 Last Admin: 09/05/18 01:11 Dose: 125 mls/hr Metronidazole (Flagyl 500mg/100ml Ns) 100 mls @ 100 mls/hr IVPB Q8 [facility]; Protocol Ibuprofen (Motrin Tab) 600 mg PO Q6 PRN PRN Reason: Headache Last Admin: 09/04/18 12:21 Dose: 600 mg Levothyroxine Sodium (Synthroid) 50 mcg PO DAILY@0630 [facility] Last Admin: 09/05/18 05:34 Dose: 50 mcg Ondansetron HCl (Zofran Inj) 4 mg IVP Q4 PRN PRN Reason: Nausea/Vomiting Last Admin: 09/03/18 17:57 Dose: 4 mg Pantoprazole Sodium (Protonix Inj) 40 mg IVP DAILY [facility] Last Admin: 09/04/18 09:30 Dose: 40 mg - Labs Labs: 09/05/18 08:06 09/05/18 08:06 Assessment and Plan - Assessment and Plan (Free Text) Plan: no overnight events. Pain much improved. tolerating clears. Tbili trending up now 8.1 gen: awake, alert, NAD, jaundice HEENT: NC/AT, +scleral icterus ABD: soft, some discomfort to epigastric area/RUQ, -murphys a/p: cholethiasis, hyperbilirubinemia trend lfts, tbili in AM f/u GI
[2018-09-05 08:18] LABS: BASO % 0.4 % (0.0-2.0); EOS # 0.1 K/uL (0.0-0.7); EOS % 2.6 % (0.0-4.0); HEMOGLOBIN 10.3 g/dL (12.0-16.0); LYMPH # 1.6 K/uL (1.0-4.3); LYMPH % 38.4 % (20.0-40.0); MEAN CELL VOLUME 94.6 fl (81.0-99.0); MEAN CORPUSCULAR HEMOGLOBIN 31.3 pg (27.0-31.0); MEAN CORPUSCULAR HGB CONC 33.1 g/dL (33.0-37.0); MEAN PLATELET VOLUME 10.4 fl (7.2-11.7); MONO # 0.4 K/uL (0.0-0.8); MONO % 8.9 % (0.0-10.0); NEUT % 49.7 % (50.0-75.0); NRBC % 0.1 % (0.0-0.0); RBC 3.29 Mil/uL (3.80-5.20); RED CELL DISTRIBUTION WIDTH 17.3 % (11.5-14.5); WHITE BLOOD COUNT 4.1 K/uL (4.8-10.8)
[2018-09-05 08:47] LABS: ALB/GLOB RATIO 0.5 (1.0-2.1); ALBUMIN 3.1 g/dL (3.5-5.0); ALT/SGPT 1154 U/L (9-52); AST/SGOT 1215 U/L (14-36); BLOOD UREA NITROGEN 7 mg/dl (7-17); CALCIUM 8.6 mg/dL (8.4-10.2); GFR NON-AFRICAN AMERICAN > 60
[2018-09-05] MEDS ORDERED: Ciprofloxacin 400mg/200ml D5W 400 MG/200 ML BAG IVPB SCH (09:00)
[2018-09-05] MEDS ORDERED: metroNIDAZOLE 500mg/100ml NS 100 ML IVPB SCH (09:00)
--- NOTE | 2018-09-05 09:50 | CP.PCM.PN ---
Subjective - Date & Time of Evaluation Date of Evaluation: 09/05/18 Time of Evaluation: 09:50 - Subjective Subjective: 52 y/o female with PMHx of fatty liver, cholelithiasis, hypothyroidism, and hyperlipidemia was seen and evaluated at bedside for abdominal pain, and jaundice onset 2 days. Patient reports her abdominal pain has improved. Patient is tolerating liquid diet. Patient reports episode of headache, but denies fever, chills, shortness of breath, nausea or vomiting. Patient reports improving symptoms to allergic reaction Objective - Vital Signs/Intake and Output Vital Signs (last 24 hours): Temp Pulse Resp BP Pulse Ox 98.2 F 69 20 100/60 95 09/05/18 08:12 09/05/18 08:12 09/05/18 08:12 09/05/18 08:12 09/05/18 08:12 - Medications Medications: Current Medications Hydromorphone HCl (Dilaudid) 0.5 mg IVP Q4 PRN PRN Reason: Pain, moderate (4-7) Ciprofloxacin (Cipro 400mg/200ml Dsw) 400 mg in 200 mls @ 200 mls/hr IVPB Q12 [facility]; Protocol Dextrose/Lactated Ringer's (Dextrose 5%/Lactated Ringer's) 1,000 mls @ 125 mls/hr IV .Q8H [facility] LICENSE OF [facility] Stop: 09/06/18 00:52 Last Admin: 09/05/18 01:11 Dose: 125 mls/hr Metronidazole (Flagyl 500mg/100ml Ns) 100 mls @ 100 mls/hr IVPB Q8 [facility]; Protocol Ibuprofen (Motrin Tab) 600 mg PO Q6 PRN PRN Reason: Headache Last Admin: 09/04/18 12:21 Dose: 600 mg Levothyroxine Sodium (Synthroid) 50 mcg PO DAILY@0630 [facility] Last Admin: 09/05/18 05:34 Dose: 50 mcg Ondansetron HCl (Zofran Inj) 4 mg IVP Q4 PRN PRN Reason: Nausea/Vomiting Last Admin: 09/03/18 17:57 Dose: 4 mg Pantoprazole Sodium (Protonix Inj) 40 mg IVP DAILY [facility] Last Admin: 09/04/18 09:30 Dose: 40 mg - Labs Labs: 09/05/18 08:06 09/05/18 08:06 - Constitutional Appears: Well, Non-toxic, No Acute Distress - Head Exam Head Exam: ATRAUMATIC, NORMOCEPHALIC - Eye Exam Eye Exam: Normal appearance, PERRL Additional comments: + scleral icterus - ENT Exam ENT Exam: Mucous Membranes Moist - Neck Exam Neck Exam: absent: Full ROM, Lymphadenopathy - Respiratory Exam Respiratory Exam: Clear to Ausculation Bilateral, NORMAL BREATHING PATTERN. absent: Rales, Rhonchi, Wheezes - Cardiovascular Exam Cardiovascular Exam: REGULAR RHYTHM, +S1, +S2 - GI/Abdominal Exam GI & Abdominal Exam: Soft, Tenderness, Normal Bowel Sounds. absent: Firm, Guarding, Rigid - Extremities Exam Extremities Exam: Full ROM. absent: Pedal Edema - Neurological Exam Neurological Exam: Alert, Awake, Oriented x3 - Psychiatric Exam Psychiatric exam: Normal Affect, Normal Mood - Skin Skin Exam: Normal Color Assessment and Plan - Assessment and Plan (Free Text) Assessment: 52 y/o female with PMHx of of fatty liver, gallstones, hypothyroidism, and hyperlipidemia was seen and evaluated in the ED for abdominal pain and jaundice onset X 3 days. Patient has hx of symptomatic cholelithiasis, was scheduled for surgery 09/20/[address] Harmon. Patient with jaundice, scleral icterus, elevated LFTs. Paitne Tbili trending up, plan for cholecystectomy s/p improved Tbitavon castañeda Plan: Acute Gallstone Cholecystitis r/o obstruction with Hyperbilirubenimia - Abdominal CT- acute calculus cholecystitis, indeterminate left adenoid gland nodule, moderate hepatosplenomegaly and fatty liver - Gallbladder US- cholelithiasis, gladder with wall thickness, positive gordon's sign, acute calculus cholecystitis cannot be excluded - MRCP- cholelithiasis, pericholecystic edema/wall thickening, common bile duct not visualized at its distal aspect, and distal stone cannot be excluded, no dilation or evidence of focal filling within portions of the more proximal CBD - (09/05/17)--AST- 1215, ALT- 1154, Total Bilirubin- 8.1 -- all trending up - Hep Panel- Negative - Blood Cultures- pending, no growth after 24 hours - GI Consult- Dr. Gracia, recommendations appreciated - Gen Surg consult- as per surgery- Will plan for surgery once LFT's are close to normalizing, started liquid diet, IVF, continue Abx - Liquid Diet at this time Allergic Reaction likely secondary to Abx Zosyn - acute, resolving - discontinue Zosyn on Day 2 - patient started on Cipro 400 mg and Metronidazole 500 mg Day #1 Urinary Tract Infection - asymptomatic, acute, positive Urine sample - Urine Culture- Pending - continue IV Abx Cipro and Metronidazole Day #1 Hyperlipidemia - Lipid Panel- elevated triglycerides 177 - continue to monitor Hypothyroidism - asymptomatic, chronic - continue home medication Levothyroxine 50 mcg PO DAILY DVT Prophylaxis - SCDs for now
[2018-09-05] MEDS: metroNIDAZOLE 500mg/100ml NS 100 ML IVPB SCH ×2 (09:56→17:26)
[2018-09-05 13:10] LABS: INR 1.4; PROTHROMBIN TIME 15.7 Seconds (9.8-13.1)
[2018-09-05 13:12] LABS: PARTIAL THROMBOPLASTIN TIME 33.1 Seconds (25.6-37.1)
--- NOTE | 2018-09-05 16:38 | CP.PCM.PN ---
Subjective - Date & Time of Evaluation Date of Evaluation: 09/05/18 Time of Evaluation: 16:36 - Subjective Subjective: no overnight events Objective - Vital Signs/Intake and Output Vital Signs (last 24 hours): Temp Pulse Resp BP Pulse Ox 98.2 F 69 20 100/60 100 09/05/18 08:12 09/05/18 08:12 09/05/18 08:12 09/05/18 08:12 09/05/18 10:27 - Medications Medications: Current Medications Hydromorphone HCl (Dilaudid) 0.5 mg IVP Q4 PRN PRN Reason: Pain, moderate (4-7) Ciprofloxacin (Cipro 400mg/200ml Dsw) 400 mg in 200 mls @ 200 mls/hr IVPB Q12 [facility]; Protocol Last Admin: 09/05/18 09:57 Dose: 200 mls/hr Dextrose/Lactated Ringer's (Dextrose 5%/Lactated Ringer's) 1,000 mls @ 125 mls/hr IV .Q8H [facility] Stop: 09/06/18 00:52 Last Admin: 09/05/18 13:07 Dose: 125 mls/hr Metronidazole (Flagyl 500mg/100ml Ns) 100 mls @ 100 mls/hr IVPB Q8 [facility]; Protocol Last Admin: 09/05/18 09:56 Dose: 100 mls/hr Ibuprofen (Motrin Tab) 600 mg PO Q6 PRN PRN Reason: Headache Last Admin: 09/04/18 12:21 Dose: 600 mg Levothyroxine Sodium (Synthroid) 50 mcg PO DAILY@0630 [facility] Last Admin: 09/05/18 05:34 Dose: 50 mcg Ondansetron HCl (Zofran Inj) 4 mg IVP Q4 PRN PRN Reason: Nausea/Vomiting Last Admin: 09/03/18 17:57 Dose: 4 mg Pantoprazole Sodium (Protonix Inj) 40 mg IVP DAILY [facility] Last Admin: 09/05/18 10:02 Dose: 40 mg - Labs Labs: 09/05/18 08:06 09/05/18 08:06 PT 15.7 Seconds (9.8-13.1) H 09/05/18 12:55 INR 1.4 09/05/18 12:55 APTT 33.1 Seconds (25.6-37.1) 09/05/18 12:55 - Head Exam Head Exam: NORMOCEPHALIC - Eye Exam Eye Exam: Scleral icterus - Respiratory Exam Respiratory Exam: Clear to Ausculation Bilateral, NORMAL BREATHING PATTERN - Cardiovascular Exam Cardiovascular Exam: REGULAR RHYTHM - GI/Abdominal Exam GI & Abdominal Exam: Soft, Normal Bowel Sounds Assessment and Plan - Assessment and Plan (Free Text) Assessment: 52 yo female with elevated lft reviewed outpatient labs I suspect this is not due to obstruction but rather intrinsic liver disease (favor auto immune hepatitis [AIH] versus Drug induced liver injury [DILI]) check PHIL, AMA, ASMA liver bx for am
[2018-09-05 16:48] LABS: INR 1.4
[2018-09-05] MEDS ORDERED: DiphenhydrAMINE 50 mg/ml Inj IVP STA (20:27)
[2018-09-06] MEDS ORDERED: DiphenhydrAMINE 50 mg/ml Inj IVP PRN (02:30)
[2018-09-06] MEDS ORDERED: Dextrose 5%/Lactated Ringer's 1,000 ML IV SCH (05:30)
[2018-09-06 06:27] LABS: INR 1.5; PROTHROMBIN TIME 16.6 Seconds (9.8-13.1)
[2018-09-06 06:29] LABS: HEMOGLOBIN 11.1 g/dL (12.0-16.0); MEAN CELL VOLUME 92.2 fl (81.0-99.0); MEAN CORPUSCULAR HEMOGLOBIN 31.7 pg (27.0-31.0); MEAN CORPUSCULAR HGB CONC 34.4 g/dL (33.0-37.0); PARTIAL THROMBOPLASTIN TIME 37.6 Seconds (25.6-37.1); RBC 3.49 Mil/uL (3.80-5.20); RED CELL DISTRIBUTION WIDTH 16.8 % (11.5-14.5); WHITE BLOOD COUNT 4.4 K/uL (4.8-10.8)
[2018-09-06] MEDS: Levothyroxine 50 MCG TAB PO SCH (06:30)
[2018-09-06 06:39] LABS: ALB/GLOB RATIO 0.6 (1.0-2.1); ALBUMIN 3.3 g/dL (3.5-5.0); BLOOD UREA NITROGEN 7 mg/dl (7-17); CALCIUM 8.9 mg/dL (8.4-10.2)
[2018-09-06 06:53] LABS: GFR NON-AFRICAN AMERICAN > 60
[2018-09-06 07:18] LABS: ALT/SGPT 1210 U/L (9-52); AST/SGOT 1095 U/L (14-36)
--- NOTE | 2018-09-06 07:55 | CP.PCM.PN ---
<Jaxson Benson - Last Filed: 09/06/18 07:53> Subjective - Date & Time of Evaluation Date of Evaluation: 09/06/18 Time of Evaluation: 07:53 - Subjective Subjective: SURGERY NOTE FOR DR. LATIF 52F seen and examined at bedside. NAEON, Patient denies pain, nausea, vomiting, fevers, chills. Tolerating diet. Continues to be jaundice Objective - Vital Signs/Intake and Output Vital Signs (last 24 hours): Temp Pulse Resp BP Pulse Ox 99.7 F H 83 18 99/53 L 96 09/06/18 00:30 09/06/18 00:30 09/06/18 00:30 09/06/18 00:30 09/06/18 00:30 - Medications Medications: Current Medications Diphenhydramine HCl (Benadryl) 50 mg IVP Q6 PRN PRN Reason: Allergy symptoms Hydromorphone HCl (Dilaudid) 0.5 mg IVP Q4 PRN PRN Reason: Pain, moderate (4-7) Dextrose/Lactated Ringer's (Dextrose 5%/Lactated Ringer's) 1,000 mls @ 125 mls/hr IV .Q8H [facility] Stop: 09/07/18 05:17 Last Admin: 09/06/18 05:30 Dose: 125 mls/hr Ibuprofen (Motrin Tab) 600 mg PO Q6 PRN PRN Reason: Headache Last Admin: 09/04/18 12:21 Dose: 600 mg Levothyroxine Sodium (Synthroid) 50 mcg PO DAILY@0630 [facility] Last Admin: 09/05/18 05:34 Dose: 50 mcg Ondansetron HCl (Zofran Inj) 4 mg IVP Q4 PRN PRN Reason: Nausea/Vomiting Last Admin: 09/03/18 17:57 Dose: 4 mg Pantoprazole Sodium (Protonix Inj) 40 mg IVP DAILY [facility] Last Admin: 09/05/18 10:02 Dose: 40 mg - Labs Labs: 09/06/18 05:55 09/06/18 05:55 PT 16.6 Seconds (9.8-13.1) H 09/06/18 05:55 INR 1.5 09/06/18 05:55 APTT 37.6 Seconds (25.6-37.1) H 09/06/18 05:55 - Constitutional Appears: Non-toxic, No Acute Distress - Eye Exam Eye Exam: Scleral icterus - Respiratory Exam Respiratory Exam: NORMAL BREATHING PATTERN - Cardiovascular Exam Cardiovascular Exam: REGULAR RHYTHM, +S1, +S2 - GI/Abdominal Exam GI & Abdominal Exam: Soft. absent: Distended, Firm, Guarding, Rigid, Tenderness, Rebound - Neurological Exam Neurological Exam: Alert, Awake - Skin Skin Exam: Dry, Intact, Warm Additional comments: jaundice Assessment and Plan - Assessment and Plan (Free Text) Assessment: 52F with cholecystitis, transaminitis Plan: - IVF - Antibiotics - Scheduled for ERCP and Liver biopsy today - will follow up results Further recs discuss with Dr. Faustino Benson, PGY3 <Marc Corrales - Last Filed: 09/06/18 13:08> Objective - Vital Signs/Intake and Output Vital Signs (last 24 hours): Temp Pulse Resp BP Pulse Ox 98.2 F 68 20 114/66 98 09/06/18 08:07 09/06/18 08:07 09/06/18 08:07 09/06/18 08:07 09/06/18 08:07 - Medications Medications: Current Medications Diphenhydramine HCl (Benadryl) 50 mg IVP Q6 PRN PRN Reason: Allergy symptoms Hydromorphone HCl (Dilaudid) 0.5 mg IVP Q4 PRN PRN Reason: Pain, moderate (4-7) Dextrose/Lactated Ringer's (Dextrose 5%/Lactated Ringer's) 1,000 mls @ 125 mls/hr IV .Q8H [facility] Stop: 09/07/18 05:17 Last Admin: 09/06/18 05:30 Dose: 125 mls/hr Ibuprofen (Motrin Tab) 600 mg PO Q6 PRN PRN Reason: Headache Last Admin: 09/04/18 12:21 Dose: 600 mg Levothyroxine Sodium (Synthroid) 88 mcg PO DAILY@0630 [facility] Ondansetron HCl (Zofran Inj) 4 mg IVP Q4 PRN PRN Reason: Nausea/Vomiting Last Admin: 09/03/18 17:57 Dose: 4 mg Pantoprazole Sodium (Protonix Inj) 40 mg IVP DAILY [facility] Last Admin: 09/06/18 10:13 Dose: 40 mg Phytonadione (Vitamin K Inj) 10 mg SC ONCE ONE Stop: 09/07/18 09:11 - Labs Labs: 09/06/18 05:55 09/06/18 05:55 PT 16.6 Seconds (9.8-13.1) H 09/06/18 05:55 INR 1.5 09/06/18 05:55 APTT 37.6 Seconds (25.6-37.1) H 09/06/18 05:55 Assessment and Plan - Assessment and Plan (Free Text) Plan: no overnight events. jaundiced. Tbili 10 abd: soft, NT, ND, -murphys f/u liver bx repeat labs in am
[2018-09-06] MEDS ORDERED: Phytonadione 10 mg/ml Inj (Adult) SC STA (09:08)
--- NOTE | 2018-09-06 09:54 | CP.PCM.PN ---
Subjective - Date & Time of Evaluation Date of Evaluation: 09/06/18 Time of Evaluation: 09:52 - Subjective Subjective: 52 y/o female with PMHx of fatty liver, cholelithiasis, hypothyroidism, and hyperlipidemia was seen and evaluated at bedside for abdominal pain, and jaundice onset 4 days. Patient reports her abdominal pain has improved. Patient is aware she is NPO at this time for a liver biopsy. Patient is agreeable and understand why she needs biopsy. Patient but denies fever, chills, shortness of breath, nausea or vomiting. Patient states her allergic reaction has improved. Objective - Vital Signs/Intake and Output Vital Signs (last 24 hours): Temp Pulse Resp BP Pulse Ox 98.2 F 68 20 114/66 98 09/06/18 08:07 09/06/18 08:07 09/06/18 08:07 09/06/18 08:07 09/06/18 08:07 - Medications Medications: Current Medications Diphenhydramine HCl (Benadryl) 50 mg IVP Q6 PRN PRN Reason: Allergy symptoms Hydromorphone HCl (Dilaudid) 0.5 mg IVP Q4 PRN PRN Reason: Pain, moderate (4-7) Dextrose/Lactated Ringer's (Dextrose 5%/Lactated Ringer's) 1,000 mls @ 125 mls/hr IV .Q8H [facility] Stop: 09/07/18 05:17 Last Admin: 09/06/18 05:30 Dose: 125 mls/hr Ibuprofen (Motrin Tab) 600 mg PO Q6 PRN PRN Reason: Headache Last Admin: 09/04/18 12:21 Dose: 600 mg Levothyroxine Sodium (Synthroid) 88 mcg PO DAILY@0630 [facility] Ondansetron HCl (Zofran Inj) 4 mg IVP Q4 PRN PRN Reason: Nausea/Vomiting Last Admin: 09/03/18 17:57 Dose: 4 mg Pantoprazole Sodium (Protonix Inj) 40 mg IVP DAILY [facility] Last Admin: 09/05/18 10:02 Dose: 40 mg Phytonadione (Vitamin K Inj) 10 mg SC ONCE ONE Stop: 09/07/18 09:11 - Labs Labs: 09/06/18 05:55 09/06/18 05:55 PT 16.6 Seconds (9.8-13.1) H 09/06/18 05:55 INR 1.5 09/06/18 05:55 APTT 37.6 Seconds (25.6-37.1) H 09/06/18 05:55 - Constitutional Appears: Well, Non-toxic, No Acute Distress - Head Exam Head Exam: ATRAUMATIC, NORMOCEPHALIC - ENT Exam ENT Exam: Mucous Membranes Moist, Normal Exam Additional comments: + scleral icterus - Neck Exam Neck Exam: Full ROM. absent: Lymphadenopathy - Respiratory Exam Respiratory Exam: Clear to Ausculation Bilateral, NORMAL BREATHING PATTERN. absent: Rales, Rhonchi, Wheezes - Cardiovascular Exam Cardiovascular Exam: REGULAR RHYTHM, +S1, +S2 - GI/Abdominal Exam GI & Abdominal Exam: Soft, Normal Bowel Sounds. absent: Firm, Guarding, Rigid - Extremities Exam Extremities Exam: Full ROM, Normal Capillary Refill. absent: Pedal Edema - Neurological Exam Neurological Exam: Alert, Awake, Oriented x3 - Psychiatric Exam Psychiatric exam: Normal Affect, Normal Mood - Skin Additional comments: jaundiced Assessment and Plan - Assessment and Plan (Free Text) Assessment: 52 y/o female with PMHx of of fatty liver, gallstones, hypothyroidism, and hyperlipidemia was seen and evaluated in the ED for abdominal pain and jaundice onset X 4 days. Patient with jaundice, scleral icterus, elevated LFTs. Patient Tbili trending up, plan for CT guided biopsy to r/o autoimmune hepatitis vs drug induced liver injury Plan: Elevated Liver Enzymes likely secondary to liver disease (auto immune hepatitis [AIH] versus Drug induced liver injury [DILI]) - Abdominal CT- acute calculus cholecystitis, indeterminate left adenoid gland nodule, moderate hepatosplenomegaly and fatty liver - Gallbladder US- cholelithiasis, gladder with wall thickness, positive gordon's sign, acute calculus cholecystitis cannot be excluded - MRCP- cholelithiasis, pericholecystic edema/wall thickening, common bile duct not visualized at its distal aspect, and distal stone cannot be excluded, no dilation or evidence of focal filling within portions of the more proximal CBD - (09/05/17)--AST- 1215, ALT- 1154, Total Bilirubin- 8.1 -- all trending up - (09/06/18)-- AST- 1095, ALT- 1210, Total Bilirubin- 10.1 - Hep Panel- Negative - Blood Cultures- pending, no growth after 3 days - CT guided Liver Biopsy- Pending results - GI Consult- Dr. Gracia, recommendation CT guided liver biopsy, patient scheduled for 1:30 PM - Gen Surg consult- as per surgery- Will plan for surgery once LFT's are close to normalizing, IVF - NPO Diet at this time Allergic Reaction likely secondary to Abx - acute, resolving - discontinue Zosyn on Day 2 - discontinue Cipro and Flagyl after Day 1 Urinary Tract Infection - asymptomatic, acute, positive Urine sample - Urine Culture- multiple species noted - no Abx at this time as patient is asymptomatic and allergies to multiple Abx Hyperlipidemia - Lipid Panel- elevated triglycerides 177 - continue to monitor Hypothyroidism - asymptomatic, chronic - change home medication Levothyroxine from 50 mcg to 88 mcg PO DAILY DVT Prophylaxis - SCDs for now
[2018-09-06] MEDS ORDERED: Lidocaine 1% Inj (20ml) ONE (13:55)
[2018-09-06] MEDS ORDERED: Absorbable Gelatin Sponge Size 12-7 ONE (13:59)
[2018-09-06] MEDS ORDERED: Morphine 4 MG/ML VIAL IVP ONE (14:22)
[2018-09-06] MEDS ORDERED: Lactated Ringer's 500 ML IV ONE (15:25)
--- NOTE | 2018-09-06 21:22 | CP.PCM.PN ---
Subjective - Date & Time of Evaluation Date of Evaluation: 09/06/18 Time of Evaluation: 17:00 - Subjective Subjective: no overnight events Objective - Vital Signs/Intake and Output Vital Signs (last 24 hours): Temp Pulse Resp BP Pulse Ox 98.2 F 73 20 100/64 96 09/06/18 19:28 09/06/18 19:28 09/06/18 19:28 09/06/18 19:28 09/06/18 19:28 Intake and Output: 09/06/18 09/07/18 18:59 06:59 Intake Total 100 Balance 100 - Medications Medications: Current Medications Diphenhydramine HCl (Benadryl) 25 mg PO Q6 PRN PRN Reason: Allergy symptoms Last Admin: 09/06/18 21:11 Dose: 25 mg Hydromorphone HCl (Dilaudid) 0.5 mg IVP Q4 PRN PRN Reason: Pain, moderate (4-7) Ibuprofen (Motrin Tab) 600 mg PO Q6 PRN PRN Reason: Headache Last Admin: 09/04/18 12:21 Dose: 600 mg Levothyroxine Sodium (Synthroid) 88 mcg PO DAILY@0630 [facility] Ondansetron HCl (Zofran Inj) 4 mg IVP Q4 PRN PRN Reason: Nausea/Vomiting Last Admin: 09/03/18 17:57 Dose: 4 mg Pantoprazole Sodium (Protonix Inj) 40 mg IVP DAILY [facility] Last Admin: 09/06/18 10:13 Dose: 40 mg Phytonadione (Vitamin K Inj) 10 mg SC ONCE ONE Stop: 09/07/18 09:11 - Labs Labs: 09/06/18 05:55 09/06/18 05:55 PT 16.6 Seconds (9.8-13.1) H 09/06/18 05:55 INR 1.5 09/06/18 05:55 APTT 37.6 Seconds (25.6-37.1) H 09/06/18 05:55 - Head Exam Head Exam: NORMOCEPHALIC - Eye Exam Eye Exam: Scleral icterus - Neck Exam Neck Exam: Normal Inspection - Respiratory Exam Respiratory Exam: Clear to Ausculation Bilateral, NORMAL BREATHING PATTERN - Cardiovascular Exam Cardiovascular Exam: REGULAR RHYTHM - GI/Abdominal Exam GI & Abdominal Exam: Soft, Normal Bowel Sounds Assessment and Plan - Assessment and Plan (Free Text) Assessment: 52 yo female with elevated lft liver bx, path pending daily inr vit k daily x 3 days trend LFT and INR
[2018-09-07] MEDS: Levothyroxine 88 MCG TAB PO SCH (06:08)
[2018-09-07 06:25] LABS: HEMOGLOBIN 10.6 g/dL (12.0-16.0); MEAN CELL VOLUME 94.2 fl (81.0-99.0); MEAN CORPUSCULAR HEMOGLOBIN 31.4 pg (27.0-31.0); MEAN CORPUSCULAR HGB CONC 33.3 g/dL (33.0-37.0); RBC 3.38 Mil/uL (3.80-5.20); RED CELL DISTRIBUTION WIDTH 17.1 % (11.5-14.5); WHITE BLOOD COUNT 4.8 K/uL (4.8-10.8)
[2018-09-07 06:35] LABS: INR 1.5; PROTHROMBIN TIME 16.5 Seconds (9.8-13.1)
[2018-09-07 06:38] LABS: PARTIAL THROMBOPLASTIN TIME 35.8 Seconds (25.6-37.1)
[2018-09-07 07:42] LABS: ALB/GLOB RATIO 0.5 (1.0-2.1); ALBUMIN 3.1 g/dL (3.5-5.0); ALT/SGPT 995 U/L (9-52); AST/SGOT 1044 U/L (14-36); BLOOD UREA NITROGEN 9 mg/dl (7-17); CALCIUM 8.3 mg/dL (8.4-10.2); GFR NON-AFRICAN AMERICAN > 60
[2018-09-07] MEDS ORDERED: Phytonadione 10 mg/ml Inj (Adult) SC ONE (09:10)
[2018-09-07] MEDS ORDERED: Pantoprazole 40 mg EC Tab PO SCH (09:30)
--- NOTE | 2018-09-07 10:45 | CP.PCM.PN ---
<Tony Wilder - Last Filed: 09/07/18 11:06> Subjective - Date & Time of Evaluation Date of Evaluation: 09/07/18 Time of Evaluation: 07:15 - Subjective Subjective: Patient seen and examined. S/p liver biopsy. No acute events over night. Denies abdominal, n/v. Denies fever/chills. Complaining of pruritus, states benadryl provided mild relief. Objective - Vital Signs/Intake and Output Vital Signs (last 24 hours): Temp Pulse Resp BP Pulse Ox 98.2 F 76 18 98/60 L 96 09/07/18 08:24 09/07/18 08:24 09/07/18 08:24 09/07/18 08:24 09/07/18 08:24 - Medications Medications: Current Medications Calamine (Calamine Lotion) 0 applic TOP TID [facility] Diphenhydramine HCl (Benadryl) 25 mg PO Q6 PRN PRN Reason: Allergy symptoms Last Admin: 09/07/18 06:11 Dose: 25 mg Levothyroxine Sodium (Synthroid) 88 mcg PO DAILY@0630 [facility] Last Admin: 09/07/18 06:08 Dose: 88 mcg Ondansetron HCl (Zofran Inj) 4 mg IVP Q4 PRN PRN Reason: Nausea/Vomiting Last Admin: 09/03/18 17:57 Dose: 4 mg - Labs Labs: 09/07/18 04:50 09/07/18 04:50 PT 16.5 Seconds (9.8-13.1) H 09/07/18 04:50 INR 1.5 09/07/18 04:50 APTT 35.8 Seconds (25.6-37.1) 09/07/18 04:50 - Constitutional Appears: No Acute Distress, Other (jaundice) - Eye Exam Eye Exam: Scleral icterus - ENT Exam ENT Exam: Mucous Membranes Moist - Respiratory Exam Respiratory Exam: NORMAL BREATHING PATTERN - Cardiovascular Exam Cardiovascular Exam: +S1, +S2 - GI/Abdominal Exam GI & Abdominal Exam: Soft. absent: Distended, Guarding, Rigid, Tenderness - Neurological Exam Neurological Exam: Alert, Awake, Oriented x3 - Skin Additional comments: jaundice pruritus likely 2/2 hyperbilirubinemia Assessment and Plan - Assessment and Plan (Free Text) Assessment: 52F with cholecystitis, transaminitis Plan: -S/p liver bx -Pruritus likely 2/2 hyperbilirubinemia -Hammad christine @10.1 -AST/ALT eleveated but trending down -F/u liver Bx results -Further recs per Dr. Antoni Garcia PGY3 <Macr Corrales - Last Filed: 09/07/18 12:00> Objective - Vital Signs/Intake and Output Vital Signs (last 24 hours): Temp Pulse Resp BP Pulse Ox 98.2 F 76 18 98/60 L 96 09/07/18 08:24 09/07/18 08:24 09/07/18 08:24 09/07/18 08:24 09/07/18 08:24 - Medications Medications: Current Medications Calamine (Calamine Lotion) 0 applic TOP TID [facility] Diphenhydramine HCl (Benadryl) 25 mg PO Q6 PRN PRN Reason: Allergy symptoms Last Admin: 09/07/18 06:11 Dose: 25 mg Levothyroxine Sodium (Synthroid) 88 mcg PO DAILY@0630 [facility] Last Admin: 09/07/18 06:08 Dose: 88 mcg Ondansetron HCl (Zofran Inj) 4 mg IVP Q4 PRN PRN Reason: Nausea/Vomiting Last Admin: 09/03/18 17:57 Dose: 4 mg - Labs Labs: 09/07/18 04:50 09/07/18 04:50 PT 16.5 Seconds (9.8-13.1) H 09/07/18 04:50 INR 1.5 09/07/18 04:50 APTT 35.8 Seconds (25.6-37.1) 09/07/18 04:50
[2018-09-07] MEDS: Calamine/Zinc Oxide LOTION TOP SCH ×2 (12:06→18:01)
[2018-09-07 13:58] LABS: MITOCHONDRIAL AB TITER 1:20 Titer (< 1:20)
--- NOTE | 2018-09-07 14:23 | CP.PCM.PN ---
<Marina Wong - Last Filed: 09/07/18 14:19> Subjective - Date & Time of Evaluation Date of Evaluation: 09/07/18 Time of Evaluation: 09:00 - Subjective Subjective: Pt seen/eval at bedside; has complaint of pruritis of knees and flanks. No redness/hives noted, though was endorsed that she had redness and hives overnight and was medicated with benadryl with some relief. Otherwise no abdominal pain, chest pain, difficulties breathing. S/p liver biopsy yesterday; no issues with biopsy site dressing. Objective - Vital Signs/Intake and Output Vital Signs (last 24 hours): Temp Pulse Resp BP Pulse Ox 98.2 F 76 18 98/60 L 96 09/07/18 08:24 09/07/18 08:24 09/07/18 08:24 09/07/18 08:24 09/07/18 08:24 - Medications Medications: Current Medications Calamine (Calamine Lotion) 0 applic TOP TID [facility] Last Admin: 09/07/18 12:06 Dose: 1 applic Diphenhydramine HCl (Benadryl) 25 mg PO Q6 PRN PRN Reason: Allergy symptoms Last Admin: 09/07/18 06:11 Dose: 25 mg Levothyroxine Sodium (Synthroid) 88 mcg PO DAILY@0630 [facility] Last Admin: 09/07/18 06:08 Dose: 88 mcg Ondansetron HCl (Zofran Inj) 4 mg IVP Q4 PRN PRN Reason: Nausea/Vomiting Last Admin: 09/03/18 17:57 Dose: 4 mg - Labs Labs: 09/07/18 04:50 09/07/18 04:50 PT 16.5 Seconds (9.8-13.1) H 09/07/18 04:50 INR 1.5 09/07/18 04:50 APTT 35.8 Seconds (25.6-37.1) 09/07/18 04:50 - Constitutional Appears: No Acute Distress - Head Exam Head Exam: NORMAL INSPECTION - Eye Exam Eye Exam: Scleral icterus - ENT Exam ENT Exam: Mucous Membranes Moist - Respiratory Exam Respiratory Exam: Clear to Ausculation Bilateral, NORMAL BREATHING PATTERN - Cardiovascular Exam Cardiovascular Exam: REGULAR RHYTHM, +S1, +S2 - GI/Abdominal Exam GI & Abdominal Exam: Soft Additional comments: dressing on biopsy site, clean and dry - Extremities Exam Extremities Exam: absent: Calf Tenderness, Pedal Edema - Neurological Exam Neurological Exam: Alert, Oriented x3 - Psychiatric Exam Psychiatric exam: Normal Mood - Skin Additional comments: jaundiced Assessment and Plan - Assessment and Plan (Free Text) Assessment: 52 yo female with PMHx of of fatty liver, gallstones, hypothyroidism, and hy perlipidemia was seen and evaluated in the ED for abdominal pain and jaundice onset X 5 days. Patient with jaundice, scleral icterus, elevated LFTs that were trending up and have stabilized since yest; t bili also trending up and stable since yest. S/p liver biopsy 09/06/18 to r/o autoimmune hepatitis vs drug induced liver injury. Positive anti-mitochondrial antibodies (1:20). - Abdominal CT- acute calculus cholecystitis, indeterminate left adenoid gland nodule, moderate hepatosplenomegaly and fatty liver - Gallbladder US- cholelithiasis, gladder with wall thickness, positive gordon's sign, acute calculus cholecystitis cannot be excluded - MRCP- cholelithiasis, pericholecystic edema/wall thickening, common bile duct not visualized at its distal aspect, and distal stone cannot be excluded, no dilation or evidence of focal filling within portions of the more proximal CBD - (09/05/18)--AST- 1215, ALT- 1154, Total Bilirubin- 8.1 -- all trending up - (09/06/18)-- AST- 1095, ALT- 1210, Total Bilirubin- 10.1 - (09/07/18)-- AST 1044, ALT 995, Total bili 10.1 -- stable from day before - Hep Panel- Negative - Blood Cultures- pending, no growth after 4 days Plan: Elevated Liver Enzymes likely secondary to liver disease (auto immune hepatitis [AIH] versus Drug induced liver injury [DILI]) - CT guided Liver Biopsy as per GI recs - GI Consult- Dr. Gracia -- does not believe presentation to be due to obstruction, but rather to liver disease; Vit K x 3 days; further recs pending - Gen Surg consult Dr. Harmon - as per surgery- plan for surgery once LFT's are close to normalizing, IVF - Positive antimitochondrial antibody Pruritis - Likely secondary to elevated bili; may be separate from allergic reaction to abx - Calamine lotion - Consider atarax as rec by GI [employer] consultant Allergic Reaction likely secondary to Abx - Resolving - Discontinued Zosyn on Day 2, and discontinued Cipro and Flagyl after Day 1 - Pt asymptomatic of infection, afebrile, no WBC count Urinary Tract Infection - Asymptomatic, acute, positive urine sample, urine culture with multiple sp ecies - No antibiotics at this time as patient is asymptomatic and allergies to multiple abx Hypothyroidism - Asymptomatic, chronic - Levothyroxine 88 mcg PO daily (changed from home dose of 50 due to elevated TSH) Hyperlipidemia - mildly elevated triglycerides 177 DVT Prophylaxis - SCDs for now <YevgeniyTanjamoe Cool - Last Filed: 09/07/18 15:04> Objective - Vital Signs/Intake and Output Vital Signs (last 24 hours): Temp Pulse Resp BP Pulse Ox 98.2 F 76 18 98/60 L 96 09/07/18 08:24 09/07/18 08:24 09/07/18 08:24 09/07/18 08:24 09/07/18 08:24 - Medications Medications: Current Medications Calamine (Calamine Lotion) 0 applic TOP TID [facility] Last Admin: 09/07/18 12:06 Dose: 1 applic Diphenhydramine HCl (Benadryl) 25 mg PO Q6 PRN PRN Reason: Allergy symptoms Last Admin: 09/07/18 06:11 Dose: 25 mg Levothyroxine Sodium (Synthroid) 88 mcg PO DAILY@0630 [facility] Last Admin: 09/07/18 06:08 Dose: 88 mcg Ondansetron HCl (Zofran Inj) 4 mg IVP Q4 PRN PRN Reason: Nausea/Vomiting Last Admin: 09/03/18 17:57 Dose: 4 mg - Labs Labs: 09/07/18 04:50 09/07/18 04:50 PT 16.5 Seconds (9.8-13.1) H 09/07/18 04:50 INR 1.5 09/07/18 04:50 APTT 35.8 Seconds (25.6-37.1) 09/07/18 04:50 Attending/Attestation - Attestation I have personally seen and examined this patient.: Yes I have fully participated in the care of the patient.: Yes I have reviewed all pertinent clinical information, including history, physical exam and plan: Yes Notes (Text): Abn LFTs with elevated AMA ? PBC - will discuss with GI - Dr Gracia , ? trial of Ursodiol ? -Atarax or Benadyl for itch. - Pt on Phytonadione for prolonged INR - Liver Biopsy pathology pending
--- NOTE | 2018-09-07 16:51 | CP.PCM.PN ---
Subjective - Date & Time of Evaluation Date of Evaluation: 09/07/18 Time of Evaluation: 16:50 - Subjective Subjective: no overnight events Objective - Vital Signs/Intake and Output Vital Signs (last 24 hours): Temp Pulse Resp BP Pulse Ox 98.1 F 69 20 99/63 L 98 09/07/18 16:25 09/07/18 16:25 09/07/18 16:25 09/07/18 16:25 09/07/18 16:25 - Medications Medications: Current Medications Calamine (Calamine Lotion) 0 applic TOP TID [facility] Last Admin: 09/07/18 12:06 Dose: 1 applic Diphenhydramine HCl (Benadryl) 25 mg PO Q6 PRN PRN Reason: Allergy symptoms Last Admin: 09/07/18 06:11 Dose: 25 mg Levothyroxine Sodium (Synthroid) 88 mcg PO DAILY@0630 [facility] Last Admin: 09/07/18 06:08 Dose: 88 mcg Ondansetron HCl (Zofran Inj) 4 mg IVP Q4 PRN PRN Reason: Nausea/Vomiting Last Admin: 09/03/18 17:57 Dose: 4 mg - Labs Labs: 09/07/18 04:50 09/07/18 04:50 PT 16.5 Seconds (9.8-13.1) H 09/07/18 04:50 INR 1.5 09/07/18 04:50 APTT 35.8 Seconds (25.6-37.1) 09/07/18 04:50 - Neck Exam Neck Exam: Normal Inspection - Cardiovascular Exam Cardiovascular Exam: REGULAR RHYTHM - GI/Abdominal Exam GI & Abdominal Exam: Soft, Normal Bowel Sounds Assessment and Plan - Assessment and Plan (Free Text) Assessment: 52 yo female with elevated lft await path if inr stable can dc home atarax for pruritis
[2018-09-08] MEDS: Levothyroxine 88 MCG TAB PO SCH (06:36)
[2018-09-08 07:45] LABS: HEMOGLOBIN 10.6 g/dL (12.0-16.0); MEAN CELL VOLUME 91.9 fl (81.0-99.0); MEAN CORPUSCULAR HEMOGLOBIN 31.8 pg (27.0-31.0); MEAN CORPUSCULAR HGB CONC 34.7 g/dL (33.0-37.0); RBC 3.33 Mil/uL (3.80-5.20); RED CELL DISTRIBUTION WIDTH 17.6 % (11.5-14.5); WHITE BLOOD COUNT 4.7 K/uL (4.8-10.8)
[2018-09-08 07:55] LABS: ALB/GLOB RATIO 0.5 (1.0-2.1); ALBUMIN 3.1 g/dL (3.5-5.0); ALT/SGPT 964 U/L (9-52); BLOOD UREA NITROGEN 7 mg/dl (7-17); CALCIUM 8.3 mg/dL (8.4-10.2); GFR NON-AFRICAN AMERICAN > 60
[2018-09-08 08:12] LABS: AST/SGOT 1023 U/L (14-36)
[2018-09-08 08:15] LABS: INR 1.4; PROTHROMBIN TIME 16.4 Seconds (9.8-13.1)
[2018-09-08 08:18] LABS: PARTIAL THROMBOPLASTIN TIME 35.9 Seconds (25.6-37.1)
[2018-09-08] MEDS: Calamine/Zinc Oxide LOTION TOP SCH ×3 (09:08→16:41)
--- NOTE | 2018-09-08 10:37 | CP.PCM.PN ---
Subjective - Date & Time of Evaluation Date of Evaluation: 09/08/18 Time of Evaluation: 10:35 - Subjective Subjective: feels better today, no pain, bilirubin continues to climb, she is markedly jaundiced, no nausea or vomiting, liver biopsy pending Objective - Vital Signs/Intake and Output Vital Signs (last 24 hours): Temp Pulse Resp BP Pulse Ox 98.6 F 74 18 92/50 L 97 09/08/18 07:56 09/08/18 07:56 09/08/18 07:56 09/08/18 07:56 09/08/18 07:56 - Medications Medications: Current Medications Calamine (Calamine Lotion) 0 applic TOP TID [facility] Last Admin: 09/08/18 09:08 Dose: 1 applic Diphenhydramine HCl (Benadryl) 25 mg PO Q6 PRN PRN Reason: Allergy symptoms Last Admin: 09/07/18 21:32 Dose: 25 mg Levothyroxine Sodium (Synthroid) 88 mcg PO DAILY@0630 [facility] Last Admin: 09/08/18 06:36 Dose: 88 mcg Ondansetron HCl (Zofran Inj) 4 mg IVP Q4 PRN PRN Reason: Nausea/Vomiting Last Admin: 09/03/18 17:57 Dose: 4 mg - Labs Labs: 09/08/18 05:30 09/08/18 05:30 PT 16.4 Seconds (9.8-13.1) H 09/08/18 07:00 INR 1.4 09/08/18 07:00 APTT 35.9 Seconds (25.6-37.1) 09/08/18 07:00 - Constitutional Appears: Non-toxic, No Acute Distress - Eye Exam Eye Exam: EOMI, Normal appearance, Scleral icterus - ENT Exam ENT Exam: Mucous Membranes Moist - Neck Exam Neck Exam: Normal Inspection - Respiratory Exam Respiratory Exam: NORMAL BREATHING PATTERN - Cardiovascular Exam Cardiovascular Exam: REGULAR RHYTHM - GI/Abdominal Exam GI & Abdominal Exam: Soft, Normal Bowel Sounds - Skin Skin Exam: Dry, Intact, Warm Assessment and Plan - Assessment and Plan (Free Text) Assessment: hepatitis, unclear etiology Plan: cont to monitor
--- NOTE | 2018-09-08 10:51 | CP.PCM.PN ---
<Marina Wong - Last Filed: 09/08/18 10:49> Subjective - Date & Time of Evaluation Date of Evaluation: 09/08/18 Time of Evaluation: 08:45 - Subjective Subjective: Pt seen/eval at bedside; no acute events overnight. No abdominal pain, chest pain, difficulties breathing, still has some pruritis, some relief with calamine lotion. S/p liver biopsy 09/06/18; no issues with biopsy site dressing. Objective - Vital Signs/Intake and Output Vital Signs (last 24 hours): Temp Pulse Resp BP Pulse Ox 98.6 F 74 18 92/50 L 97 09/08/18 07:56 09/08/18 07:56 09/08/18 07:56 09/08/18 07:56 09/08/18 07:56 - Medications Medications: Current Medications Calamine (Calamine Lotion) 0 applic TOP TID [facility] Last Admin: 09/08/18 09:08 Dose: 1 applic Diphenhydramine HCl (Benadryl) 25 mg PO Q6 PRN PRN Reason: Allergy symptoms Last Admin: 09/07/18 21:32 Dose: 25 mg Levothyroxine Sodium (Synthroid) 88 mcg PO DAILY@0630 [facility] Last Admin: 09/08/18 06:36 Dose: 88 mcg Ondansetron HCl (Zofran Inj) 4 mg IVP Q4 PRN PRN Reason: Nausea/Vomiting Last Admin: 09/03/18 17:57 Dose: 4 mg - Labs Labs: 09/08/18 05:30 09/08/18 05:30 PT 16.4 Seconds (9.8-13.1) H 09/08/18 07:00 INR 1.4 09/08/18 07:00 APTT 35.9 Seconds (25.6-37.1) 09/08/18 07:00 - Constitutional Appears: No Acute Distress - Head Exam Head Exam: NORMAL INSPECTION - Eye Exam Eye Exam: Normal appearance - Respiratory Exam Respiratory Exam: NORMAL BREATHING PATTERN. absent: Wheezes, Respiratory Distress - Cardiovascular Exam Cardiovascular Exam: REGULAR RHYTHM - GI/Abdominal Exam GI & Abdominal Exam: Soft. absent: Tenderness Additional comments: dressing on biopsy site, clean and dry - Extremities Exam Extremities Exam: Normal Inspection - Neurological Exam Neurological Exam: Alert, Oriented x3 - Psychiatric Exam Psychiatric exam: Normal Mood - Skin Skin Exam: Dry, Warm. absent: Normal Color Additional comments: jaundiced Assessment and Plan - Assessment and Plan (Free Text) Assessment: 52 yo female with PMHx of of fatty liver, gallstones, hypothyroidism, and hyperlipidemia was seen and evaluated in the ED for abdominal pain and jaundice onset X 5 days. Patient with jaundice, scleral icterus, elevated LFTs that were trending up and have stabilized since yest; t bili also trending up and stable since yest. S/p liver biopsy 09/06/18 to r/o autoimmune hepatitis vs drug induced liver injury. Positive anti-mitochondrial antibodies (1:20). - Abdominal CT- acute calculus cholecystitis, indeterminate left adenoid gland nodule, moderate hepatosplenomegaly and fatty liver - Gallbladder US- cholelithiasis, gladder with wall thickness, positive gordon's sign, acute calculus cholecystitis cannot be excluded - MRCP- cholelithiasis, pericholecystic edema/wall thickening, common bile duct not visualized at its distal aspect, and distal stone cannot be excluded, no dilation or evidence of focal filling within portions of the more proximal CBD - (09/05/18)--AST- 1215, ALT- 1154, Total Bilirubin- 8.1 INR 1.4 -- all trending up - (09/06/18)-- AST- 1095, ALT- 1210, Total Bilirubin- 10.1, INR 1. - (09/07/18)-- AST 1044, ALT 995, Total bili 10.1, INR 1.5 -- stable from day before - (09/08/18)-- AST 1023, ALT 964, total bili 11.7, INR 1.4; ast/alt stable, tbili still rising - Hep Panel- Negative - PHIL positive 1:80 nucleolar; Antimitochondrial pos 1:20; Anti-smooth muscle neg - Blood Cultures- final, no growth after 5 days Plan: Elevated Liver Enzymes likely secondary to liver disease (auto immune hepatitis [AIH] versus Drug induced liver injury [DILI]) - s/p CT guided liver biopsy as per GI recs - GI Consult- Dr. Gracia, recs appreciated -- does not believe presentation to be due to obstruction, but rather to liver disease; Vit K x 3 days; monitor INR - Gen Surg consult Dr. Harmon, recs appreciated- continue to monitor t bili - PHIL positive 1:80 nucleolar; Antimitochondrial pos 1:20; Anti-smooth muscle neg - Positive antimitochondrial antibody 1:20, low titer - F/u liver biopsy results Pruritis - Likely secondary to elevated bili; may be separate from allergic reaction to abx - Calamine lotion - Consider atarax as rec by GI financial consultant Allergic Reaction likely secondary to Abx - Resolving - Discontinued Zosyn on Day 2, and discontinued Cipro and Flagyl after Day 1 - Pt asymptomatic of infection, afebrile, no WBC count Urinary Tract Infection - Asymptomatic, acute, positive urine sample, urine culture with multiple species - No antibiotics at this time as patient is asymptomatic and allergies to mul tiple abx Hypothyroidism - Asymptomatic, chronic - Levothyroxine 88 mcg PO daily (changed from home dose of 50 due to elevated TSH) Hyperlipidemia - Mildly elevated triglycerides 177 DVT Prophylaxis - SCDs for now <Tanja Vuong - Last Filed: 09/08/18 15:04> Objective - Vital Signs/Intake and Output Vital Signs (last 24 hours): Temp Pulse Resp BP Pulse Ox 98.6 F 74 18 92/50 L 100 09/08/18 07:56 09/08/18 07:56 09/08/18 07:56 09/08/18 07:56 09/08/18 12:29 - Medications Medications: Current Medications Calamine (Calamine Lotion) 0 applic TOP TID [facility] Last Admin: 09/08/18 13:21 Dose: Not Given Diphenhydramine HCl (Benadryl) 25 mg PO Q6 PRN PRN Reason: Allergy symptoms Last Admin: 09/07/18 21:32 Dose: 25 mg Levothyroxine Sodium (Synthroid) 88 mcg PO DAILY@0630 [facility] Last Admin: 09/08/18 06:36 Dose: 88 mcg Ondansetron HCl (Zofran Inj) 4 mg IVP Q4 PRN PRN Reason: Nausea/Vomiting Last Admin: 09/03/18 17:57 Dose: 4 mg - Labs Labs: 09/08/18 05:30 09/08/18 05:30 PT 16.4 Seconds (9.8-13.1) H 09/08/18 07:00 INR 1.4 09/08/18 07:00 APTT 35.9 Seconds (25.6-37.1) 09/08/18 07:00 Attending/Attestation - Attestation I have personally seen and examined this patient.: Yes I have fully participated in the care of the patient.: Yes I have reviewed all pertinent clinical information, including history, physical exam and plan: Yes Notes (Text): Abn LFT ? Autoimmune Hepatitis -elevated PHIL, AMA -Atarax or Benadyl for itch. - Pt on Phytonadione for prolonged INR - Liver Biopsy pathology pending - increasing Total Bili from 10.1 to 11.7 Coagulopathy Thrombocytopenia
[2018-09-09] MEDS: Levothyroxine 88 MCG TAB PO SCH (06:48)
[2018-09-09 07:54] LABS: ALB/GLOB RATIO 0.5 (1.0-2.1); ALBUMIN 3.1 g/dL (3.5-5.0); BILIRUBIN,DIRECT 11.6 mg/ml (0.0-0.4)
--- NOTE | 2018-09-09 08:35 | CP.PCM.PN ---
Subjective - Date & Time of Evaluation Date of Evaluation: 09/09/18 Time of Evaluation: 08:33 - Subjective Subjective: SURGERY NOTE FOR DR. LATIF 52F seen and examined at bedside. Patient pain improving, tolerating regular diet, s/p liver biopsy two days ago. Continues to complain of pruritis. Objective - Vital Signs/Intake and Output Vital Signs (last 24 hours): Temp Pulse Resp BP Pulse Ox 98.3 F 76 18 104/61 98 09/09/18 08:11 09/09/18 08:11 09/09/18 08:11 09/09/18 08:11 09/09/18 08:11 - Medications Medications: Current Medications Calamine (Calamine Lotion) 0 applic TOP TID [facility] Last Admin: 09/08/18 16:41 Dose: 1 applic Diphenhydramine HCl (Benadryl) 25 mg PO Q6 PRN PRN Reason: Allergy symptoms Last Admin: 09/08/18 22:01 Dose: 25 mg Levothyroxine Sodium (Synthroid) 88 mcg PO DAILY@0630 [facility] Last Admin: 09/09/18 06:48 Dose: 88 mcg Ondansetron HCl (Zofran Inj) 4 mg IVP Q4 PRN PRN Reason: Nausea/Vomiting Last Admin: 09/03/18 17:57 Dose: 4 mg - Labs Labs: 09/08/18 05:30 09/08/18 05:30 PT 16.4 Seconds (9.8-13.1) H 09/08/18 07:00 INR 1.4 09/08/18 07:00 APTT 35.9 Seconds (25.6-37.1) 09/08/18 07:00 - Constitutional Appears: Non-toxic, No Acute Distress - Respiratory Exam Respiratory Exam: Clear to Ausculation Bilateral, NORMAL BREATHING PATTERN - Cardiovascular Exam Cardiovascular Exam: REGULAR RHYTHM, +S1, +S2 - GI/Abdominal Exam GI & Abdominal Exam: Soft. absent: Distended, Firm, Guarding, Rigid, Tenderness, Rebound - Neurological Exam Neurological Exam: Alert, Awake - Skin Skin Exam: Dry, Intact, Warm Additional comments: jaundice Assessment and Plan - Assessment and Plan (Free Text) Assessment: 52F with transaminitis 2/2 unknown cause Plan: - Liver biopsy done - pending results - continue diet Further recs discuss with Dr. Faustino Benson, PGY3
[2018-09-09] MEDS: Calamine/Zinc Oxide LOTION TOP SCH ×3 (09:42→17:01)
--- NOTE | 2018-09-09 11:53 | CP.PCM.PN ---
Subjective - Date & Time of Evaluation Date of Evaluation: 09/09/18 Time of Evaluation: 11:53 - Subjective Subjective: Patient seen sitting in chair in no acute distress. Uneventful evening. Tolerating regular PO diet. She denies chest pain, shortness of breath, abdominal pain, nausea and vomiting but admits to continued pruritis. S/p 09/06/18, pending final results. Objective - Vital Signs/Intake and Output Vital Signs (last 24 hours): Temp Pulse Resp BP Pulse Ox 98.3 F 76 18 104/61 98 09/09/18 08:11 09/09/18 08:11 09/09/18 08:11 09/09/18 08:11 09/09/18 08:11 - Medications Medications: Current Medications Calamine (Calamine Lotion) 0 applic TOP TID [facility] Last Admin: 09/09/18 09:42 Dose: 1 applic Diphenhydramine HCl (Benadryl) 25 mg PO Q6 PRN PRN Reason: Allergy symptoms Last Admin: 09/08/18 22:01 Dose: 25 mg Levothyroxine Sodium (Synthroid) 88 mcg PO DAILY@0630 [facility] Last Admin: 09/09/18 06:48 Dose: 88 mcg Ondansetron HCl (Zofran Inj) 4 mg IVP Q4 PRN PRN Reason: Nausea/Vomiting Last Admin: 09/03/18 17:57 Dose: 4 mg - Labs Labs: 09/08/18 05:30 09/08/18 05:30 PT 16.4 Seconds (9.8-13.1) H 09/08/18 07:00 INR 1.4 09/08/18 07:00 APTT 35.9 Seconds (25.6-37.1) 09/08/18 07:00 - Constitutional Appears: Non-toxic, No Acute Distress - Head Exam Head Exam: NORMAL INSPECTION - Eye Exam Eye Exam: Normal appearance - ENT Exam ENT Exam: Mucous Membranes Moist - Respiratory Exam Respiratory Exam: NORMAL BREATHING PATTERN. absent: Respiratory Distress - Cardiovascular Exam Cardiovascular Exam: REGULAR RHYTHM - GI/Abdominal Exam GI & Abdominal Exam: Soft. absent: Guarding, Tenderness Additional comments: dressing on biopsy site, clean and dry, surrounding area non-erythematous, non- tender - Neurological Exam Neurological Exam: Alert, Awake, Normal Gait - Psychiatric Exam Psychiatric exam: Normal Affect, Normal Mood - Skin Skin Exam: Dry, Intact, Warm. absent: Normal Color Additional comments: diffuse jaundiced Assessment and Plan - Assessment and Plan (Free Text) Assessment: 52 yo female with PMHx of of fatty liver, gallstones, hypothyroidism, and hyperlipidemia was seen and evaluated in the ED for abdominal pain and jaundice onset X 5 days. Patient with jaundice, scleral icterus, elevated LFTs that were trending up and have stabilized since yest; t bili also trending up and stable since yest. S/p liver biopsy 09/06/18 to r/o autoimmune hepatitis vs drug induced liver injury. Positive anti-mitochondrial antibodies (1:20). - Abdominal CT- acute calculus cholecystitis, indeterminate left adenoid gland nodule, moderate hepatosplenomegaly and fatty liver - Gallbladder US- cholelithiasis, gladder with wall thickness, positive gordon's sign, acute calculus cholecystitis cannot be excluded - MRCP- cholelithiasis, pericholecystic edema/wall thickening, common bile duct not visualized at its distal aspect, and distal stone cannot be excluded, no dilation or evidence of focal filling within portions of the more proximal CBD - (09/05/18)-- AST- 1215, ALT- 1154, Total Bilirubin- 8.1 INR 1.4 -- all trending up - (09/06/18)-- AST- 1095, ALT- 1210, Total Bilirubin- 10.1, INR 1. - (09/07/18)-- AST 1044, ALT 995, Total bili 10.1, INR 1.5 -- stable from day be fore - (09/08/18)-- AST 1023, ALT 964, total bili 11.7, INR 1.4; ast/alt stable, tbili still rising - (09/09/18)--AST 1182, ALT 950, total bili 13.5, INR 1.4; ast up from day prior, alt stable, tbili still rising - Hep Panel- Negative - PHIL positive 1:80 nucleolar; Antimitochondrial pos 1:20; Anti-smooth muscle neg - Blood Cultures- final, no growth after 5 days Plan: Elevated Liver Enzymes likely secondary to liver disease (auto immune hepatitis [AIH] versus Drug induced liver injury [DILI]) - s/p CT guided liver biopsy as per GI recs - GI Consult- Dr. Gracia, recs appreciated -- does not believe presentation to be due to obstruction, but rather to liver disease; Vit K x 3 days; monitor INR - Gen Surg consult Dr. Harmon, recs appreciated- continue to monitor t bili - PHIL positive 1:80 nucleolar; Antimitochondrial pos 1:20; Anti-smooth muscle neg - Positive antimitochondrial antibody 1:20, low titer - F/u liver biopsy results Pruritis - Likely secondary to elevated bili; may be separate from allergic reaction to abx - Calamine lotion - Consider atarax as rec by GI medical economics consultant Allergic Reaction likely secondary to Abx - Resolving - Discontinued Zosyn on Day 2, and discontinued Cipro and Flagyl after Day 1 - Pt asymptomatic of infection, afebrile, no WBC count Urinary Tract Infection - Asymptomatic, acute, positive urine sample, urine culture with multiple species - No antibiotics at this time as patient is asymptomatic and allergies to multiple abx Hypothyroidism - Asymptomatic, chronic - Levothyroxine 88 mcg PO daily (changed from home dose of 50 due to elevated TSH) Hyperlipidemia - Mildly elevated triglycerides 177 (09/03/18) DVT Prophylaxis - SCDs for now
[2018-09-10] MEDS: Levothyroxine 88 MCG TAB PO SCH (05:51)
[2018-09-10 06:41] LABS: HEMOGLOBIN 10.4 g/dL (12.0-16.0); MEAN CELL VOLUME 94.2 fl (81.0-99.0); RBC 3.26 Mil/uL (3.80-5.20); RED CELL DISTRIBUTION WIDTH 17.2 % (11.5-14.5); WHITE BLOOD COUNT 5.6 K/uL (4.8-10.8)
[2018-09-10 06:47] LABS: ALB/GLOB RATIO 0.5 (1.0-2.1); ALBUMIN 3.2 g/dL (3.5-5.0); ALT/SGPT 935 U/L (9-52); BLOOD UREA NITROGEN 9 mg/dl (7-17); CALCIUM 8.6 mg/dL (8.4-10.2); GFR NON-AFRICAN AMERICAN > 60
[2018-09-10 06:53] LABS: AST/SGOT 1228 U/L (14-36)
--- NOTE | 2018-09-10 08:00 | CP.PCM.PN ---
<Tony Wilder - Last Filed: 09/10/18 08:01> Subjective - Date & Time of Evaluation Date of Evaluation: 09/10/18 Time of Evaluation: 07:00 - Subjective Subjective: Patient seen and examined. No acute events over night. Passing flatus. Objective - Vital Signs/Intake and Output Vital Signs (last 24 hours): Temp Pulse Resp BP Pulse Ox 98.8 F 93 H 19 103/60 96 09/10/18 01:22 09/10/18 01:22 09/10/18 01:22 09/10/18 01:22 09/10/18 01:22 - Medications Medications: Current Medications Calamine (Calamine Lotion) 0 applic TOP TID [facility] Last Admin: 09/09/18 17:01 Dose: 1 applic Diphenhydramine HCl (Benadryl) 25 mg PO Q6 PRN PRN Reason: Allergy symptoms Last Admin: 09/09/18 22:13 Dose: 25 mg Levothyroxine Sodium (Synthroid) 88 mcg PO DAILY@0630 [facility] Last Admin: 09/10/18 05:51 Dose: 88 mcg Ondansetron HCl (Zofran Inj) 4 mg IVP Q4 PRN PRN Reason: Nausea/Vomiting Last Admin: 09/03/18 17:57 Dose: 4 mg - Labs Labs: 09/10/18 06:05 09/10/18 06:05 PT 16.4 Seconds (9.8-13.1) H 09/08/18 07:00 INR 1.4 09/08/18 07:00 APTT 35.9 Seconds (25.6-37.1) 09/08/18 07:00 - Constitutional Appears: No Acute Distress, Other (jaundice) - Head Exam Head Exam: ATRAUMATIC - Eye Exam Eye Exam: Scleral icterus - Respiratory Exam Respiratory Exam: NORMAL BREATHING PATTERN - Cardiovascular Exam Cardiovascular Exam: +S1, +S2 - GI/Abdominal Exam GI & Abdominal Exam: Soft. absent: Distended, Firm, Guarding, Rigid, Tenderness - Neurological Exam Neurological Exam: Alert, Awake, Oriented x3 - Psychiatric Exam Psychiatric exam: Normal Mood - Skin Skin Exam: Dry, Warm Additional comments: jaundice Assessment and Plan - Assessment and Plan (Free Text) Assessment: 52F with hepatitis Plan: Resume regular diet INR 1.4 F/u liver Bx F/u AM labs F/u GI recs Further recs per Dr. Faustino Garcia PGY3 <Charlie Woods - Last Filed: 09/10/18 11:29> Subjective - Date & Time of Evaluation Time of Evaluation: 10:00 - Subjective Subjective: Patient was seen and examined at the bedside. Agree with resident's note above. Objective - Vital Signs/Intake and Output Vital Signs (last 24 hours): Temp Pulse Resp BP Pulse Ox 98.5 F 72 20 109/61 98 09/10/18 08:48 09/10/18 08:48 09/10/18 08:48 09/10/18 08:48 09/10/18 08:48 - Medications Medications: Current Medications Calamine (Calamine Lotion) 0 applic TOP TID [facility] Last Admin: 09/10/18 09:27 Dose: 120 applic Diphenhydramine HCl (Benadryl) 25 mg PO Q6 PRN PRN Reason: Allergy symptoms Last Admin: 09/09/18 22:13 Dose: 25 mg Levothyroxine Sodium (Synthroid) 88 mcg PO DAILY@0630 [facility] Last Admin: 09/10/18 05:51 Dose: 88 mcg Ondansetron HCl (Zofran Inj) 4 mg IVP Q4 PRN PRN Reason: Nausea/Vomiting Last Admin: 09/03/18 17:57 Dose: 4 mg - Labs Labs: 09/10/18 06:05 09/10/18 06:05 PT 16.4 Seconds (9.8-13.1) H 09/08/18 07:00 INR 1.4 09/08/18 07:00 APTT 35.9 Seconds (25.6-37.1) 09/08/18 07:00 Assessment and Plan - Assessment and Plan (Free Text) Plan: - No general surgery intervention at present time - repeat labs in am - GI follow up
[2018-09-10 08:49] VITALS: BP 109/61; PULSE 72; RESP 20; TEMP 98.5; O2SAT 98
[2018-09-10] MEDS: Calamine/Zinc Oxide LOTION TOP SCH ×2 (09:27→12:03)
--- NOTE | 2018-09-10 09:42 | CT ---
PROCEDURE: Date of procedure: 09/06/2018 Procedure: 1. Ultrasound-guided core liver biopsy, CPT 29352 2. Ultrasound guidance for biopsy, 55693 Medications: The patient is sedated by the anesthesiologist. HISTORY: Abnormal LFTs TECHNIQUE: Following informed consent and procedure time-out, the patient was placed supine on bed and limited ultrasound showed a normal appearing left hepatic lobe. After patient abdomen was prepped and draped in the usual sterile fashion and the skin was anesthetized with 2% lidocaine, an 18 gauge core needle was advanced percutaneously under direct ultrasound guidance into the left hepatic lobe. Upon confirmation of needle position, three 18 gauge core specimens were obtained and sent for routine pathology. The biopsy to tract was then embolized with Gelfoam. A post biopsy ultrasound showed no hematoma. A dressing was applied. IMPRESSION: Ultrasound-guided core biopsy left hepatic lobe. There were no immediate complications.
--- NOTE | 2018-09-10 11:12 | CP.PCM.PN ---
Subjective - Date & Time of Evaluation Date of Evaluation: 09/10/18 Time of Evaluation: 09:30 - Subjective Subjective: Pt seen/eval at bedside; sitting at bedside. No acute events overnight. Tbili still trending up; no abdominal pain or discomfort. No chest pain, SOB. S/p liver biopsy 09/06/18; no issues with biopsy site, dressing removed yester day. Objective - Vital Signs/Intake and Output Vital Signs (last 24 hours): Temp Pulse Resp BP Pulse Ox 98.5 F 72 20 109/61 98 09/10/18 08:48 09/10/18 08:48 09/10/18 08:48 09/10/18 08:48 09/10/18 08:48 - Medications Medications: Current Medications Calamine (Calamine Lotion) 0 applic TOP TID [facility] Last Admin: 09/10/18 09:27 Dose: 120 applic Diphenhydramine HCl (Benadryl) 25 mg PO Q6 PRN PRN Reason: Allergy symptoms Last Admin: 09/09/18 22:13 Dose: 25 mg Levothyroxine Sodium (Synthroid) 88 mcg PO DAILY@0630 [facility] Last Admin: 09/10/18 05:51 Dose: 88 mcg Ondansetron HCl (Zofran Inj) 4 mg IVP Q4 PRN PRN Reason: Nausea/Vomiting Last Admin: 09/03/18 17:57 Dose: 4 mg - Labs Labs: 09/10/18 06:05 09/10/18 06:05 PT 16.4 Seconds (9.8-13.1) H 09/08/18 07:00 INR 1.4 09/08/18 07:00 APTT 35.9 Seconds (25.6-37.1) 09/08/18 07:00 - Constitutional Appears: No Acute Distress - Head Exam Head Exam: NORMAL INSPECTION - ENT Exam ENT Exam: Mucous Membranes Moist - Respiratory Exam Respiratory Exam: NORMAL BREATHING PATTERN - Cardiovascular Exam Cardiovascular Exam: REGULAR RHYTHM - GI/Abdominal Exam GI & Abdominal Exam: Soft. absent: Tenderness Additional comments: no bleeding/erythema at biopsy site - Extremities Exam Extremities Exam: absent: Calf Tenderness, Pedal Edema - Neurological Exam Neurological Exam: Alert, Oriented x3 - Psychiatric Exam Psychiatric exam: Normal Mood - Skin Skin Exam: Dry. absent: Normal Color Additional comments: jaundiced
--- NOTE | 2018-09-10 12:31 | CP.PCM.DIS ---
Provider - Provider Date of Admission: 09/03/18 12:25 Attending physician: Castro Chairez MD Primary care physician: Nikolas Sorenson MD Consults: 09/03/18 12:19 General Surgery Consult Stat Comment: Consulting Provider: Rufino Harmon Consulting Physician: Rufino Harmon Reason for Consult: Acute cholecystitis 09/03/18 13:18 Gastroenterology Consult Stat Comment: jaundice, acute gallstone cholecystitis Consulting Provider: Catrachito Gracia Consulting Physician: Catrachito Gracia Reason for Consult: hx chronic elevated liver enzymes, chronic biliary colic Time Spent in preparation of Discharge (in minutes): 30 Diagnosis - Discharge Diagnosis (1) Elevated LFTs Status: Acute (2) Elevated bilirubin Status: Acute (3) Hypothyroid Status: Chronic Hospital Course - Lab Results Lab Results: Micro Results 09/03/18 02:05 Blood-Venous Blood Culture - Final NO GROWTH AFTER 5 DAYS 09/03/18 02:05 Blood-Venous Gram Stain - Final TEST NOT PERFORMED 09/03/18 02:35 Blood-Venous Blood Culture - Final NO GROWTH AFTER 5 DAYS 09/03/18 02:35 Blood-Venous Gram Stain - Final TEST NOT PERFORMED 09/03/18 02:35 Urine,Clean Catch Urine Culture - Final 50-100,000 CFU/ML. MULTIPLE SPECIES. SUGGEST REPEAT SPECIMEN. Most Recent Lab Values WBC 5.6 K/uL (4.8-10.8) 09/10/18 06:05 RBC 3.26 Mil/uL (3.80-5.20) L 09/10/18 06:05 Hgb 10.4 g/dL (12.0-16.0) L 09/10/18 06:05 Hct 30.7 % (34.0-47.0) L 09/10/18 06:05 MCV 94.2 fl (81.0-99.0) D 09/10/18 06:05 MCH 32.0 pg (27.0-31.0) H 09/10/18 06:05 MCHC 34.0 g/dL (33.0-37.0) 09/10/18 06:05 RDW 17.2 % (11.5-14.5) H 09/10/18 06:05 Plt Count 142 K/uL (130-400) 09/10/18 06:05 MPV 10.4 fl (7.2-11.7) 09/05/18 08:06 Neut % (Auto) 49.7 % (50.0-75.0) L 09/05/18 08:06 Lymph % (Auto) 38.4 % (20.0-40.0) 09/05/18 08:06 [place] % (Auto) 8.9 % (0.0-10.0) 09/05/18 08:06 Eos % (Auto) 2.6 % (0.0-4.0) 09/05/18 08:06 Baso % (Auto) 0.4 % (0.0-2.0) 09/05/18 08:06 Neut # (Auto) 2.0 K/uL (1.8-7.0) 09/05/18 08:06 Lymph # (Auto) 1.6 K/uL (1.0-4.3) 09/05/18 08:06 [place] # (Auto) 0.4 K/uL (0.0-0.8) 09/05/18 08:06 Eos # (Auto) 0.1 K/uL (0.0-0.7) 09/05/18 08:06 Baso # (Auto) 0.0 K/uL (0.0-0.2) 09/05/18 08:06 PT 16.4 Seconds (9.8-13.1) H 09/08/18 07:00 INR 1.4 09/08/18 07:00 APTT 35.9 Seconds (25.6-37.1) 09/08/18 07:00 Sodium 135 mmol/l (132-148) 09/10/18 06:05 Potassium 4.0 MMOL/L (3.6-5.0) 09/10/18 06:05 Chloride 106 mmol/L (98-107) 09/10/18 06:05 Carbon Dioxide 24 mmol/L (22-30) 09/10/18 06:05 Anion Gap 9 (10-20) L 09/10/18 06:05 BUN 9 mg/dl (7-17) 09/10/18 06:05 Creatinine 0.5 mg/dl (0.7-1.2) L 09/10/18 06:05 Est GFR ( Amer) > 60 09/10/18 06:05 Est GFR (Non-Af Amer) > 60 09/10/18 06:05 POC Glucose (mg/dL) 98 mg/dL (65-110) 09/03/18 06:59 Random Glucose 98 mg/dL (65-105) 09/10/18 06:05 Hemoglobin A1c 4.8 % (4.2-6.5) 09/03/18 15:25 Calcium 8.6 mg/dL (8.4-10.2) 09/10/18 06:05 Total Bilirubin 13.6 mg/dl (0.2-1.3) H 09/10/18 06:05 Direct Bilirubin 11.6 mg/ml (0.0-0.4) H 09/09/18 05:30 AST 1228 U/L (14-36) H 09/10/18 06:05 ALT 935 U/L (9-52) H 09/10/18 06:05 Alkaline Phosphatase 238 U/L (38-126) H 09/10/18 06:05 Total Creatine Kinase < 20 U/L (30-135) L 09/05/18 12:55 Total Protein 9.2 G/DL (6.3-8.2) H 09/10/18 06:05 Albumin 3.2 g/dL (3.5-5.0) L 09/10/18 06:05 Globulin 6.1 gm/dL (2.2-3.9) H 09/10/18 06:05 Albumin/Globulin Ratio 0.5 (1.0-2.1) L 09/10/18 06:05 Triglycerides 177 mg/DL (0-149) H 09/03/18 15:25 Cholesterol 166 mg/dL (0-199) 09/03/18 15:25 LDL Cholesterol Direct 76 mg/dL (0-129) 09/03/18 15:25 HDL Cholesterol 19 MG/DL (30-70) L 09/03/18 15:25 Lipase 124 U/L (23-300) 09/03/18 01:42 Mitochondrial AB Titer 1:20 Titer (< 1:20) H 09/05/18 19:00 TSH 3rd Generation 10.40 mIU/ML (0.46-4.68) H 09/05/18 16:05 Urine Color Yellow (YELLOW) 09/03/18 02:35 Urine Clarity Clear (Clear) 09/03/18 02:35 Urine pH 7.0 (5.0-8.0) 09/03/18 02:35 Ur Specific [place] < 1.005 (1.003-1.030) 09/03/18 02:35 Urine Protein Negative mg/dL (NEGATIVE) 09/03/18 02:35 Urine Glucose (UA) Negative mg/dL (NEGATIVE) 09/03/18 02:35 Urine Ketones Negative mg/dL (NEGATIVE) 09/03/18 02:35 Urine Blood Negative (NEGATIVE) 09/03/18 02:35 Urine Nitrate Negative (NEGATIVE) 09/03/18 02:35 Urine Bilirubin Small (NEGATIVE) 09/03/18 02:35 Urine Urobilinogen 0.2 mg/dL (0.2-1.0) 09/03/18 02:35 Ur Leukocyte Esterase Moderate Hailee/uL (Negative) 09/03/18 02:35 Urine Microscopic WBC 8 /hpf (0-5) H 09/03/18 02:35 Ur Squamous Epith Cells 10 /hpf (0-5) H 09/03/18 02:35 Amorphous Sediment Few /ul (<OCC) H 09/03/18 02:35 Urine Bacteria Few (<OCC) H 09/03/18 02:35 PHIL Screen Positive (Negative) H 09/05/18 19:00 PHIL Titer 1:80 Titer (<1:40) H 09/05/18 19:00 PHIL Pattern Nucleolar H 09/05/18 19:00 Anti-Mitochondrial Ab Positive (Negative) H 09/05/18 19:00 Anti-Smooth Muscle Ab Negative (Negative) 09/05/18 19:00 Hepatitis A IgM Ab Negative (NEGATIVE) 09/03/18 15:25 Hep Bs Antigen Negative (NEGATIVE) 09/03/18 15:25 Hep B Core IgM Ab Negative (NEGATIVE) 09/03/18 15:25 Hepatitis Be Antibody Non-reactive (Non-reactive) 09/05/18 19:00 Hepatitis Be Antigen Non-reactive (Non-reactive) 09/05/18 19:00 Hepatitis C Antibody Negative (NEGATIVE) 09/03/18 15:25 HIV 1&2 Ag/Ab, 4th Gen Nonreactive (Nonreactive) 09/03/18 15:25 - Hospital Course Hospital Course: 52 yo female with PMHx of fatty liver, gallstones, hypothyroidism; initially admitted for suspected cholecystitis and jaundice x5 days. Initial abd CT and abd u/s were suspicious for acute cholecystitis however pt asymptomatic for much of hospital stay. During stay, LFT and Tbili trended up/plateaued the past 2-3 days. Surgery was consulted for possible cholecystectomy, MRCP was done - showed cholelithiasis. GI consulted - Dr. Gracia - suspected that pt's presentation is not due to obstruction but rather intrinsic liver disease, like autoimmune hepatitis vs drug induced liver injury; rec AMA, PHIL, testing and liver biopsy. Pt tested positive for AMA a titer 1:20, and PHIL positive 1:80 nucleolar pattern. Hepatitis panel negative. Liver biopsy done on 09/06/18 without complications. Surgery - holding off on surg intervention, rec to f/u liver biopsy. INR stable at 1.4-1.5 during stay - stable for d/c from GI perspective w/ follow up. Pt experienced some pruritis- rec atarax. Chronic hypothyroidism - found to have elevated TSH; dose adjusted to 88 mcg from 50 mcg. Found to have +LE in urine, originally received abx, but developed allergic reaction so abx were dc'd; asymptomatic UTI. Blood Cultures- final, no growth after 5 days. Pt is hemodynamically stable and asymptomatic. This morning was seen/eval at bedside reported no acute events overnight. Has been tolerating PO diet without difficulty, has been out of bed, walking around, performing self-care activities. Will need close follow up with GI Dr. Gracia as outpt to f/u liver biopsy results, and outpatient follow up with surgery Dr. Harmon. Prescriptions for atarax and new dose of synthroid sent to pt's preferred pharmacy; discussed with pt to not take old dose synthroid any longer and to take new dose. May use calamine lotion and atarax for itching. Discussed importance of follow up with Dr. Gracia within 1 week; pt has his info, states she understands she has to follow up with GI and PMD. Given ED precautions - if feeling overall worse, increasing abdominal pain, return to ED. All questions answered. Pt discussed w/ Dr. Chairez. Discharge Exam - Head Exam Head Exam: ATRAUMATIC - ENT Exam ENT Exam: Mucous Membranes Moist - Respiratory Exam Respiratory Exam: Clear to PA & Lateral, NORMAL BREATHING PATTERN, UNREMARKABLE - Cardiovascular Exam Cardiovascular Exam: REGULAR RHYTHM, +S1, +S2 - GI/Abdominal Exam GI & Abdominal Exam: Soft Additional comments: no erythema or bleeding at biopsy site - Extremities Exam Extremities exam: normal inspection Additional comments: no calf tenderness - Neurological Exam Neurological exam: Alert, Oriented x3 - Psychiatric Exam Psychiatric exam: Normal Mood - Skin Skin Exam: Dry, Warm Discharge Plan - Discharge Medications Prescriptions: hydrOXYzine HCl [Atarax] 25 mg PO Q8H PRN #20 tab PRN Reason: Itching / Pruritus Levothyroxine [Synthroid] 88 mcg PO DAILY@0630 #30 tab - Follow Up Plan Condition: STABLE Disposition: HOME/ ROUTINE Patient education suggested?: Yes Instructions: Liver Biopsy (DC), Gallstones (DC) Additional Instructions: Please see your PMD and subeditor Dr. Gracia within 1 week. Two prescriptions sent to your pharmacy - new dose of synthroid (88 mcg; DO NOT TAKE OLD DOSE), and hydroxyzine for itching. Please return to ED if you have abdominal pain, or you feel overall worse. Referrals: Nikolas Sorenson MD [Family Provider] - Rufino Harmon MD [Staff Provider] - Catrachito Gracia MD, PhD [Staff Provider] -
== END 2018-09-10 14:11 | disposition home or self-care (01) | DRG 207 ==
LOC: H.ER 00:33 → H.ERHOLD 12:25 → H.MEDSURG1 15:35
PROVIDERS: ADMIT Hospitalist; ATTEND Hospitalist
PROC: 0FB23ZX Excision of Left Lobe Liver, Percutaneous Approach, Diagnostic (ICD-10-PCS; principal; 2018-09-06 14:00)
DX: K80.12 Calculus of gallbladder with acute and chronic cholecystitis without obstruction (principal); K75.4 Autoimmune hepatitis; R18.8 Other ascites; D69.6 Thrombocytopenia, unspecified; N39.0 Urinary tract infection, site not specified; D68.9 Coagulation defect, unspecified; K76.0 Fatty (change of) liver, not elsewhere classified; E03.9 Hypothyroidism, unspecified; E11.9 Type 2 diabetes mellitus without complications; E78.5 Hyperlipidemia, unspecified

== ENCOUNTER 2018-09-28 20:33 | Observation (INO) | payer MEDICAID ==
--- NOTE | 2018-09-28 20:52 | ED PDOC ---
HPI: General Adult Time Seen by Provider: 09/28/18 20:51 Chief Complaint (Nursing): Abnormal Labs Chief Complaint (Provider): abnormal bloodwork History Per: Patient (52 y/o female with ongoing jaundice noted with elevated LFTS and biopsy yesterday demonstrating autoimmune hepatitis. Was sent for admission by Dr. Samia RUBIO. Denies any fevers/chills.) Past Medical History Reviewed: Historical Data, Nursing Documentation, Vital Signs Vital Signs: Last Vital Signs Temp 98.4 F 09/28/18 20:36 Pulse 84 09/28/18 20:36 Resp 18 09/28/18 20:36 BP 117/67 09/28/18 20:36 Pulse Ox 100 09/28/18 20:36 - Medical History PMH: Anemia, Diabetes (recently diagnosed), Gall Bladder Disease (gallstones), Hypercholesterolemia, Hypothyroidism Denies: Chronic Kidney Disease - Family History Family History: States: Unknown Family Hx - Home Medications Home Medications: Ambulatory Orders Medication Instructions Recorded Ergocalciferol (Vitamin D2) 50,000 unit PO TU 09/03/18 [Vitamin D2] DiphenhydrAMINE [Benadryl] 25 mg PO Q6 PRN cap 09/10/18 Levothyroxine [Synthroid] 88 mcg PO DAILY@0630 #30 tab 09/10/18 hydrOXYzine HCl [Atarax] 25 mg PO Q8H PRN #20 tab 09/10/18 - Allergies Allergies/Adverse Reactions: Allergies Allergy/AdvReac Type Severity Reaction Status Date / Time cortisone Allergy RASH Verified 09/28/18 20:36 piperacillin [From Zosyn] Allergy ITCHING Verified 09/28/18 20:36 tazobactam [From Zosyn] Allergy ITCHING Verified 09/28/18 20:36 Review of Systems ROS Statement: Except As Marked, All Systems Reviewed And Found Negative Physical Exam - Reviewed Nursing Documentation Reviewed: Yes Vital Signs Reviewed: Yes - Physical Exam Appears: Positive for: Well, Non-toxic, No Acute Distress Head Exam: Positive for: ATRAUMATIC, NORMAL INSPECTION, NORMOCEPHALIC Skin: Positive for: Normal Color, Warm, Jaundice Eye Exam: Positive for: EOMI, Normal appearance, PERRL ENT: Positive for: Normal ENT Inspection Neck: Positive for: Normal, Painless ROM Cardiovascular/Chest: Positive for: Regular Rate, Rhythm Respiratory: Positive for: CNT, Normal Breath Sounds Gastrointestinal/Abdominal: Positive for: Normal Exam, Soft Back: Positive for: Normal Inspection Extremity: Positive for: Normal ROM Neurologic/Psych: Positive for: Alert, Oriented - Laboratory Results Result Diagrams: 09/28/18 21:30 09/28/18 21:30 - ECG ECG Rhythm: Positive for: Sinus Rhythm (NSR 79BPM NO ECTOPY NO ACUTE CHANGES) O2 Sat by Pulse Oximetry: 100 - Progress ED Course And Treament: d/w Dr. Hamlin. 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 D/W DR. SIRERA. Disposition - Clinical Impression Clinical Impression: Autoimmune hepatitis - Patient ED Disposition Is Patient to be Admitted: Yes - Disposition Disposition Time: 22:25 Condition: FAIR - Pt Status Changed To: Hospital Disposition Of: Observation
[2018-09-28] MEDS ORDERED: methylPREDNISolone 60 MG in Sodium Chloride 0.9% 50 ML IVPB STA (21:14)
[2018-09-28 22:05] LABS: INR 1.9; PROTHROMBIN TIME 21.6 Seconds (9.8-13.1)
[2018-09-28 22:07] LABS: SQUAMOUS EPITHIAL 2 /hpf (0-5); URINE BACTERIA FEW (<OCC); URINE BILIRUBIN MODERATE (NEGATIVE); URINE BLOOD NEGATIVE (NEGATIVE); URINE CLARITY SLIGHTY-CLOUDY (Clear); URINE COLOR AMBER (YELLOW); URINE GLUCOSE (UA) NEG (NEGATIVE); URINE LEUKOCYTE ESTERASE NEG Leu/uL (Negative); URINE PROTEIN NEGATIVE (NEGATIVE)
[2018-09-28 22:08] LABS: PARTIAL THROMBOPLASTIN TIME 37.9 Seconds (25.6-37.1)
[2018-09-28 22:11] LABS: ALB/GLOB RATIO 0.5 (1.0-2.1); ALBUMIN 3.1 g/dL (3.5-5.0); ALT/SGPT 797 U/L (9-52); BLOOD UREA NITROGEN 8 mg/dl (7-17); CALCIUM 8.2 mg/dL (8.4-10.2); GFR NON-AFRICAN AMERICAN > 60
[2018-09-28 22:18] LABS: AST/SGOT 1309 U/L (14-36)
[2018-09-28 22:25] LABS: BASO # 0.1 K/uL (0.0-0.2); BASO % 1.4 % (0.0-2.0); EOS % 0.8 % (0.0-4.0); HEMOGLOBIN 9.8 g/dL (12.0-16.0); LYMPH # 2.1 K/uL (1.0-4.3); LYMPH % 46.3 % (20.0-40.0); MEAN CELL VOLUME 92.3 fl (81.0-99.0); MEAN CORPUSCULAR HEMOGLOBIN 31.6 pg (27.0-31.0); MEAN CORPUSCULAR HGB CONC 34.2 g/dL (33.0-37.0); MEAN PLATELET VOLUME 8.9 fl (7.2-11.7); MONO # 0.6 K/uL (0.0-0.8); MONO % 12.7 % (0.0-10.0); NEUT # 1.7 K/uL (1.8-7.0); NEUT % 38.8 % (50.0-75.0); NRBC % 0.2 % (0.0-0.0); RBC 3.11 Mil/uL (3.80-5.20); RED CELL DISTRIBUTION WIDTH 20.1 % (11.5-14.5); WHITE BLOOD COUNT 4.4 K/uL (4.8-10.8)
[2018-09-28] MEDS ORDERED: DiphenhydrAMINE 50 mg/ml Inj IVP STA (22:53)
--- NOTE | 2018-09-29 00:06 | CP.PCM.HP ---
<Marina Wong - Last Filed: 09/29/18 01:53> History of Present Illness - History of Present Illness History of Present Illness: 52 yo female with PMHx of fatty liver, gallstones, hypothyroidism; recently admitted to [facility] in Aug 2018 for elevated LFTs and jaundice, suspected autoimmune hepatitis; had liver biopsy done on 09/06/18, and was discharged to follow up with GI Dr. Gracia and PMD; presented to ED with worsening jaundice. 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 Due to history of reaction, it was recommended she start steroid therapy in hospital to monitor for adverse effects/allergic reaction. Pt states her reaction manifested as red bumps on her face, as well as some facial swelling, but that she was not short of breath and her throat did not close up. Today patient endorses worsening jaundice, but improvement of pruritis. Was discharged with atarax prescription but states she has not needed to take it due to resolution of symptoms. Endorses worsening jaundice, especially of the eyes. Denies abdominal pain, shortness of breath, chest pain, issues stooling, issues voiding, leg pain, or otherwise feeling different. PMD: Dr. Sorenson PSHx: Radical Hysterectomy with Bilateral Oophorectomy (due to multiple fibroids) Family Hx: mother- passed at age 70 due to pancreatic cancer, IDDM; father- passed at age 72 due to RI, sibling- IDDM and hypothyroidism, other sibling- NIDDM and hypertension Medications: levothyroxine 88 mcg Allergies: Cortisone? zosyn? Social Hx: denies tobacco use, EOTH use, illicit drug use In ED: Vitals: BP 117/67, HR 84, RR 18, O2 sat 100, Temp 98.4 CMP: T bili 19.7, AST 1309, ALT 797, ALP 194, K 3.4 INR 1.9 CBC Hgb 9.8, Hct 28.7, PLT 146 Relevant to history, from past admission: - Initially admitted to [facility] in Aug 2018 for jaundice x5 days, suspected cholecystitis. Initial abd CT and abd u/s were suspicious for acute cholecystitis, MRCP showed cholelithiasis and she was asymptomatic. LFT and Tb ki trended up to 900-1200, and 10, respectively. GI consult - Dr. Gracia - suspected that pt's presentation is not due to obstruction but rather intrinsic liver disease, like autoimmune hepatitis vs drug induced liver injury; AMA, PHIL, testing and liver biopsy. Pt tested positive for AMA a titer 1:20, and PHIL positive 1:80 nucleolar pattern. Hepatitis panel negative. Liver biopsy done on 09/06/18 without complications. INR stable at 1.4-1.5 during stay. Was stable for d/c from GI perspective w/ follow up. Chronic hypothyroidism - found to have elevated TSH; dose adjusted to 88 mcg from 50 mcg. Present on Admission - Present on Admission Any Indicators Present on Admission: No Review of Systems - Review of Systems All systems: reviewed and no additional remarkable complaints except Review of Systems: as per hpi Past Patient History - Past Medical History & Family History Past Medical History?: Yes - Past Social History Smoking Status: Never Smoked Alcohol: None Drugs: Denies Home Situation {Lives}: With Family - CARDIAC Hx Hypercholesterolemia: Yes - PULMONARY Hx Respiratory Disorders: No - NEUROLOGICAL Hx Neurological Disorder: No - HEENT Hx HEENT Problems: No - RENAL Hx Chronic Kidney Disease: No - ENDOCRINE/METABOLIC Hx Hypothyroidism: Yes - HEMATOLOGICAL/ONCOLOGICAL Hx Anemia: Yes - INTEGUMENTARY Hx Dermatological Problems: No - MUSCULOSKELETAL/RHEUMATOLOGICAL Hx Musculoskeletal Disorders: No - GASTROINTESTINAL Hx Gall Bladder Disease: Yes (gallstones) - GENITOURINARY/GYNECOLOGICAL Hx Genitourinary Disorders: No - PSYCHIATRIC Hx Psychophysiologic Disorder: No - SURGICAL HISTORY Hx Surgeries: Yes Hx Hysterectomy: Yes - ANESTHESIA Hx Anesthesia: Yes Hx Anesthesia Reactions: No Hx Malignant Hyperthermia: No Meds Allergies/Adverse Reactions: Allergies Allergy/AdvReac Type Severity Reaction Status Date / Time cortisone Allergy RASH Verified 09/28/18 20:36 piperacillin [From Zosyn] Allergy ITCHING Verified 09/28/18 20:36 tazobactam [From Zosyn] Allergy ITCHING Verified 09/28/18 20:36 Physical Exam - Constitutional Appears: No Acute Distress - Eye Exam Eye Exam: Scleral icterus (marked) - ENT Exam ENT Exam: Mucous Membranes Dry - Respiratory Exam Respiratory Exam: NORMAL BREATHING PATTERN. absent: Respiratory Distress - Cardiovascular Exam Cardiovascular Exam: REGULAR RHYTHM - GI/Abdominal Exam GI & Abdominal Exam: Soft. absent: Tenderness - Extremities Exam Extremities exam: Negative for: calf tenderness - Neurological Exam Neurological exam: Alert, Oriented x3 - Psychiatric Exam Psychiatric exam: Normal Affect, Normal Mood - Skin Skin Exam: Dry, Warm Additional comments: marked jaundice Results - Vital Signs Recent Vital Signs: Last Vital Signs Temp 98.4 F 09/28/18 20:36 Pulse 84 09/28/18 20:36 Resp 18 09/28/18 20:36 BP 117/67 09/28/18 20:36 Pulse Ox 100 09/28/18 23:29 - Labs Result Diagrams: 09/28/18 21:30 09/28/18 21:30 Labs: Laboratory Results - last 24 hr 09/28/18 09/28/18 09/28/18 21:30 21:30 21:30 WBC 4.4 L RBC 3.11 L Hgb 9.8 L Hct 28.7 L MCV 92.3 MCH 31.6 H MCHC 34.2 RDW 20.1 H Plt Count 146 MPV 8.9 Neut % (Auto) 38.8 L Lymph % (Auto) 46.3 H Barton % (Auto) 12.7 H Eos % (Auto) 0.8 Baso % (Auto) 1.4 Neut # (Auto) 1.7 L Lymph # (Auto) 2.1 Barton # (Auto) 0.6 Eos # (Auto) 0.0 Baso # (Auto) 0.1 PT 21.6 H INR 1.9 APTT 37.9 H Sodium 136 Potassium 3.4 L Chloride 102 Carbon Dioxide 23 Anion Gap 14 BUN 8 Creatinine 0.5 L Est GFR ( Amer) > 60 Est GFR (Non-Af Amer) > 60 Random Glucose 111 H Calcium 8.2 L Total Bilirubin 19.7 H AST 1309 H ALT 797 H Alkaline Phosphatase 194 H Total Protein 9.5 H Albumin 3.1 L Globulin 6.4 H Albumin/Globulin Ratio 0.5 L Urine Color Urine Clarity Urine pH Ur Specific [place] Urine Protein Urine Glucose (UA) Urine Ketones Urine Blood Urine Nitrate Urine Bilirubin Urine Urobilinogen Ur Leukocyte Esterase Urine RBC (Auto) Urine Microscopic WBC Ur Squamous Epith Cells Urine Bacteria Urine Yeast (Budding) 09/28/18 21:30 WBC RBC Hgb Hct MCV MCH MCHC RDW Plt Count MPV Neut % (Auto) Lymph % (Auto) Barton % (Auto) Eos % (Auto) Baso % (Auto) Neut # (Auto) Lymph # (Auto) Barton # (Auto) Eos # (Auto) Baso # (Auto) PT INR APTT Sodium Potassium Chloride Carbon Dioxide Anion Gap BUN Creatinine Est GFR ( Amer) Est GFR (Non-Af Amer) Random Glucose Calcium Total Bilirubin AST ALT Alkaline Phosphatase Total Protein Albumin Globulin Albumin/Globulin Ratio Urine Color Mey Urine Clarity Slighty-cloudy Urine pH 6.0 Ur Specific [place] 1.009 Urine Protein Negative Urine Glucose (UA) Neg Urine Ketones Negative Urine Blood Negative Urine Nitrate Negative Urine Bilirubin Moderate Urine Urobilinogen 1.0 Ur Leukocyte Esterase Neg Urine RBC (Auto) < 1 Urine Microscopic WBC 10 H Ur Squamous Epith Cells 2 Urine Bacteria Few H Urine Yeast (Budding) Few H Assessment & Plan - Assessment and Plan (Free Text) Assessment: 52 yo F with autoimmune hepatitis and hypothyroidism, with worsening jaundice, admitted for monitoring of steroid therapy. LFTs, T bili continue to be elevated. Plan: Autoimmune hepatitis - Confirmed by liver biopsy - GI Consult - Dr. Ames/Samia - Solumedrol 60 mg IV at midnight in ED, pre-medicated with 25 mg benadryl - Repeat dose at 8 am - Monitor for signs/symptoms of allergic reaction - CMP in am Hypothyroidism - Resume home med, levothyroxine 88 mcg daily Hypokalemia - K 3.4 - Replete with 40 mEq PO - CMP in am Diet - Regular diet DVT prophylaxis - Pt ambulates, SCDs when in bed Pt seen/discussed with Dr. Patel <Gregor Patel - Last Filed: 09/29/18 03:23> Results - Vital Signs Recent Vital Signs: Last Vital Signs Temp 98.1 F 09/29/18 00:58 Pulse 80 09/29/18 00:58 Resp 18 09/29/18 00:58 BP 102/61 09/29/18 00:58 Pulse Ox 99 09/29/18 00:58 - Labs Result Diagrams: 09/28/18 21:30 09/28/18 21:30 Labs: Laboratory Results - last 24 hr 09/28/18 09/28/18 09/28/18 21:30 21:30 21:30 WBC 4.4 L RBC 3.11 L Hgb 9.8 L Hct 28.7 L MCV 92.3 MCH 31.6 H MCHC 34.2 RDW 20.1 H Plt Count 146 MPV 8.9 Neut % (Auto) 38.8 L Lymph % (Auto) 46.3 H Barton % (Auto) 12.7 H Eos % (Auto) 0.8 Baso % (Auto) 1.4 Neut # (Auto) 1.7 L Lymph # (Auto) 2.1 Barton # (Auto) 0.6 Eos # (Auto) 0.0 Baso # (Auto) 0.1 PT 21.6 H INR 1.9 APTT 37.9 H Sodium 136 Potassium 3.4 L Chloride 102 Carbon Dioxide 23 Anion Gap 14 BUN 8 Creatinine 0.5 L Est GFR ( Amer) > 60 Est GFR (Non-Af Amer) > 60 Random Glucose 111 H Calcium 8.2 L Total Bilirubin 19.7 H AST 1309 H ALT 797 H Alkaline Phosphatase 194 H Total Protein 9.5 H Albumin 3.1 L Globulin 6.4 H Albumin/Globulin Ratio 0.5 L Urine Color Urine Clarity Urine pH Ur Specific [place] Urine Protein Urine Glucose (UA) Urine Ketones Urine Blood Urine Nitrate Urine Bilirubin Urine Urobilinogen Ur Leukocyte Esterase Urine RBC (Auto) Urine Microscopic WBC Ur Squamous Epith Cells Urine Bacteria Urine Yeast (Budding) 09/28/18 21:30 WBC RBC Hgb Hct MCV MCH MCHC RDW Plt Count MPV Neut % (Auto) Lymph % (Auto) Barton % (Auto) Eos % (Auto) Baso % (Auto) Neut # (Auto) Lymph # (Auto) Barton # (Auto) Eos # (Auto) Baso # (Auto) PT INR APTT Sodium Potassium Chloride Carbon Dioxide Anion Gap BUN Creatinine Est GFR ( Amer) Est GFR (Non-Af Amer) Random Glucose Calcium Total Bilirubin AST ALT Alkaline Phosphatase Total Protein Albumin Globulin Albumin/Globulin Ratio Urine Color Mey Urine Clarity Slighty-cloudy Urine pH 6.0 Ur Specific [place] 1.009 Urine Protein Negative Urine Glucose (UA) Neg Urine Ketones Negative Urine Blood Negative Urine Nitrate Negative Urine Bilirubin Moderate Urine Urobilinogen 1.0 Ur Leukocyte Esterase Neg Urine RBC (Auto) < 1 Urine Microscopic WBC 10 H Ur Squamous Epith Cells 2 Urine Bacteria Few H Urine Yeast (Budding) Few H Attending/Attestation - Attestation I have personally seen and examined this patient.: Yes I have fully participated in the care of the patient.: Yes I have reviewed all pertinent clinical information: Yes Notes (Text): I saw, examined and discussed this patient with Dr Wong. I agree with the assessment and Plan outlined. This is a 52 years old female with Jaundice, with positive liver Biopsy revealing Autoimmune Hepatitis. The patient would be treated with steroids. Because she developed an allergic reaction of pruritus and facial edema to Prednisone, she will be observed in hospital while receiving Intravenous Methylprednisolone along with Benadryl.The next dose will be Oral methylprednisolone with which she will be discharged. Gregor Patel MD
[2018-09-29] MEDS ORDERED: MethylPREDNISolone 40 mg Vial ONE (00:13)
[2018-09-29] MEDS ORDERED: DiphenhydrAMINE 50 mg/ml Inj ONE (00:20)
[2018-09-29] MEDS ORDERED: Levothyroxine 88 MCG TAB PO SCH (06:30)
[2018-09-29] MEDS ORDERED: Potassium Chloride 20 mEq ER Tab PO ONE (07:00)
[2018-09-29] MEDS ORDERED: methylPREDNISolone 60 MG in Sodium Chloride 0.9% 50 ML IVPB ONE (08:00)
[2018-09-29 08:38] VITALS: BP 123/66; PULSE 86; RESP 20; TEMP 97.9; O2SAT 98
--- NOTE | 2018-09-29 09:28 | RAD ---
HISTORY: routine COMPARISON: Chest x-ray performed 05/22/15 TECHNIQUE: Chest PA and lateral FINDINGS: LUNGS: Linear atelectasis, left lung base. No focal consolidation. Please note that chest x-ray has limited sensitivity for the detection of pulmonary masses. PLEURA: No significant pleural effusion identified. No definite pneumothorax . CARDIOVASCULAR: Heart size appears within normal limits. No atherosclerotic calcification present. OSSEOUS STRUCTURES: No acute osseous abnormality identified. VISUALIZED UPPER ABDOMEN: Unremarkable. OTHER FINDINGS: None. IMPRESSION: Linear atelectasis, left lung base.
--- NOTE | 2018-09-29 11:11 | CP.PCM.DIS ---
Provider - Provider Date of Admission: 09/28/18 22:25 Primary care physician: Dr Nikolas Sorenson Consults: 09/28/18 22:26 Gastroenterology Consult Stat Comment: Consulting Provider: Dewayne Ames Consulting Physician: Dewayne Ames Reason for Consult: autoimmune hepatitis Time Spent in preparation of Discharge (in minutes): 15 Hospital Course - Lab Results Lab Results: Most Recent Lab Values WBC 4.4 K/uL (4.8-10.8) L 09/28/18 21:30 RBC 3.11 Mil/uL (3.80-5.20) L 09/28/18 21:30 Hgb 9.8 g/dL (12.0-16.0) L 09/28/18 21:30 Hct 28.7 % (34.0-47.0) L 09/28/18 21:30 MCV 92.3 fl (81.0-99.0) 09/28/18 21:30 MCH 31.6 pg (27.0-31.0) H 09/28/18 21:30 MCHC 34.2 g/dL (33.0-37.0) 09/28/18 21:30 RDW 20.1 % (11.5-14.5) H 09/28/18 21:30 Plt Count 146 K/uL (130-400) 09/28/18 21:30 MPV 8.9 fl (7.2-11.7) 09/28/18 21:30 Neut % (Auto) 38.8 % (50.0-75.0) L 09/28/18 21:30 Lymph % (Auto) 46.3 % (20.0-40.0) H 09/28/18 21:30 Edwards % (Auto) 12.7 % (0.0-10.0) H 09/28/18 21:30 Eos % (Auto) 0.8 % (0.0-4.0) 09/28/18 21:30 Baso % (Auto) 1.4 % (0.0-2.0) 09/28/18 21:30 Neut # (Auto) 1.7 K/uL (1.8-7.0) L 09/28/18 21:30 Lymph # (Auto) 2.1 K/uL (1.0-4.3) 09/28/18 21:30 Edwards # (Auto) 0.6 K/uL (0.0-0.8) 09/28/18 21:30 Eos # (Auto) 0.0 K/uL (0.0-0.7) 09/28/18 21:30 Baso # (Auto) 0.1 K/uL (0.0-0.2) 09/28/18 21:30 PT 21.6 Seconds (9.8-13.1) H 09/28/18 21:30 INR 1.9 09/28/18 21:30 APTT 37.9 Seconds (25.6-37.1) H 09/28/18 21:30 Sodium 136 mmol/l (132-148) 09/28/18 21:30 Potassium 3.4 MMOL/L (3.6-5.0) L 09/28/18 21:30 Chloride 102 mmol/L (98-107) 09/28/18 21:30 Carbon Dioxide 23 mmol/L (22-30) 09/28/18 21:30 Anion Gap 14 (10-20) 09/28/18 21:30 BUN 8 mg/dl (7-17) 09/28/18 21:30 Creatinine 0.5 mg/dl (0.7-1.2) L 09/28/18 21:30 Est GFR ( Amer) > 60 09/28/18 21:30 Est GFR (Non-Af Amer) > 60 09/28/18 21:30 Random Glucose 111 mg/dL (65-105) H 09/28/18 21:30 Calcium 8.2 mg/dL (8.4-10.2) L 09/28/18 21:30 Total Bilirubin 19.7 mg/dl (0.2-1.3) H 09/28/18 21:30 AST 1309 U/L (14-36) H 09/28/18 21:30 ALT 797 U/L (9-52) H 09/28/18 21:30 Alkaline Phosphatase 194 U/L (38-126) H 09/28/18 21:30 Total Protein 9.5 G/DL (6.3-8.2) H 09/28/18 21:30 Albumin 3.1 g/dL (3.5-5.0) L 09/28/18 21:30 Globulin 6.4 gm/dL (2.2-3.9) H 09/28/18 21:30 Albumin/Globulin Ratio 0.5 (1.0-2.1) L 09/28/18 21:30 Urine Color Mey (YELLOW) 09/28/18 21:30 Urine Clarity Slighty-cloudy (Clear) 09/28/18 21:30 Urine pH 6.0 (5.0-8.0) 09/28/18 21:30 Ur Specific [place] 1.009 (1.003-1.030) 09/28/18 21:30 Urine Protein Negative mg/dL (NEGATIVE) 09/28/18 21:30 Urine Glucose (UA) Neg mg/dL (NEGATIVE) 09/28/18 21:30 Urine Ketones Negative mg/dL (NEGATIVE) 09/28/18 21:30 Urine Blood Negative (NEGATIVE) 09/28/18 21:30 Urine Nitrate Negative (NEGATIVE) 09/28/18 21:30 Urine Bilirubin Moderate (NEGATIVE) 09/28/18 21:30 Urine Urobilinogen 1.0 mg/dL (0.2-1.0) 09/28/18 21:30 Ur Leukocyte Esterase Neg Hailee/uL (Negative) 09/28/18 21:30 Urine RBC (Auto) < 1 /hpf (0-3) 09/28/18 21:30 Urine Microscopic WBC 10 /hpf (0-5) H 09/28/18 21:30 Ur Squamous Epith Cells 2 /hpf (0-5) 09/28/18 21:30 Urine Bacteria Few (<OCC) H 09/28/18 21:30 Urine Yeast (Budding) Few /hpf (NEGATIVE) H 09/28/18 21:30 - Hospital Course Hospital Course: 52 y/o female with PMH Hypothyroidism recently diagnosed with autoimmune hepatitis with liver biopsy sent to hospital for observation to start Steroid therapy due to remote adverse reaction to steroids Patient started on Steroids and appeared to be stable with no reaction Will d/c patient home on Prednisone Po Patient to follow up with Dr. Gracia as scheduled Discharge Exam - Head Exam Head Exam: ATRAUMATIC, NORMAL INSPECTION, NORMOCEPHALIC - Eye Exam Eye Exam: EOMI, Normal appearance, PERRL, Scleral icterus Pupil Exam: NORMAL ACCOMODATION - ENT Exam ENT Exam: Mucous Membranes Moist, Normal Exam - Neck Exam Neck exam: Full Rom, Normal Inspection - Respiratory Exam Respiratory Exam: Clear to PA & Lateral, NORMAL BREATHING PATTERN. absent: Rales, Rhonchi, Wheezes - GI/Abdominal Exam GI & Abdominal Exam: Normal Bowel Sounds, Soft. absent: Guarding, Rebound, Tenderness - Rectal Exam Rectal Exam: Deferred - Extremities Exam Extremities exam: normal capillary refill, normal inspection, pedal pulses present - Back Exam Back exam: NORMAL INSPECTION - Neurological Exam Neurological exam: Alert, CN II-XII Intact, Oriented x3, Reflexes Normal - Psychiatric Exam Psychiatric exam: Normal Affect, Normal Mood - Skin Skin Exam: Dry, Intact, Warm Discharge Plan - Discharge Medications Prescriptions: predniSONE [Prednisone] 60 mg PO DAILY #120 tab - Follow Up Plan Condition: STABLE Disposition: HOME/ ROUTINE Patient education suggested?: Yes Referrals: Catrachito Gracia MD, PhD [Staff Provider] -
--- NOTE | 2018-09-29 16:46 | CARD ---
APPROVED REPORT Date of service: 09/28/2018 EKG Measurement Heart [id number] <Conclusion> Normal sinus rhythm Normal ECG
--- NOTE | 2018-09-29 18:58 | CON ---
DATE: 09/29/2018 ADMITTING PHYSICIAN: Dr. Patel . HISTORY OF PRESENT ILLNESS: This is a very pleasant 52-year-old woman just recently diagnosed by my partner Dr. Gracia with autoimmune hepatitis who has more clear elevated liver function tests, who was admitted last night not only because of her abnormal hepatic enzymes and her jaundice, but in order to begin therapy for autoimmune hepatitis. She gave a distant history of a possible ALLERGY TO CORTISONE and that is the treatment for autoimmune hepatitis that we want to start. She was admitted in order to start cortisone therapy to see how she reacts. Last night, she received 60 mg of Solu-Medrol via the IV; however, she had been given along with that Benadryl and therefore it was difficult to know if she did or did not have a reaction to the Solu-Medrol. This morning when I came in, she is completely asymptomatic. There is no rash, no swelling of the lips, no shortness of breath, actually no signs of any allergy but again she did receive 25 mg of Benadryl IV last night when the Solu-Medrol had been given and therefore it is tough to assess whether she has had a reaction or not. The Benadryl was ordered p.o. this morning to be given before the prednisone. Fortunately, the patient did not take it, and she gave me back the capsule which I then handed to the nurse to discard and to document that she did not take the Benadryl and therefore now this morning, I will go ahead and give her the 60 mg of prednisone p.o. without the Benadryl to see if there is a reaction or not while she is here in the hospital. If over the next 6 to 7 hours there is no reaction, she will be discharged home, and I called into her pharmacy the prednisone 60 mg once a day to be taken for the next 6 weeks at which time she will follow up with Dr. Gracia to see if there has been an improvement in her hepatic enzymes. She is aware of all the side effects of prednisone as Dr. Gracia had discussed with her prior and I also repeated today the possible whalen facies, increased blood pressure, agitation, anxiety, swelling of the legs, hypertension. She is well aware of this long-term certainly there is other effects including effect to the bones which she is aware of as well, however, given the severity of her autoimmune hepatitis, the benefits of the therapy outweigh the risks at this point in time. SHE HAS MULTIPLE ALLERGIES TO THE CORTISONE supposedly, although so far it does not appear to be the one, PIPERACILLIN OR PENICILLIN AND TAZOBACTAM. At home, she was taking levothyroxine. PAST MEDICAL HISTORY: Thyroid disease. SURGICAL HISTORY: Noncontributory. FAMILY HISTORY: Noncontributory. SOCIAL HISTORY: No alcohol, tobacco or drug use. PHYSICAL EXAMINATION: GENERAL: She is a well developed, well nourished, jaundiced woman. Awake, alert, and oriented x3, in no acute distress whatsoever. VITAL SIGNS: Presently, she is afebrile. She is markedly jaundiced. ABDOMEN: Soft, good bowel sounds, nontender, nondistended. CHEST: Bilateral chest exam showed clear to auscultation. HEART: Regular rate and rhythm. S1 and S2. EXTREMITIES: Without any cyanosis, clubbing, or edema. LABORATORY DATA: Reviewed. Her CBC is remarkable for white count 4.4, H and H 9.8 and 28.7, her platelets are normal at 146. INR is 1.9. SMA-7 showed slightly low potassium of 3.4. She was supplemented with p.o. potassium this morning. Her LFTs are markedly elevated with bilirubin 19.7, AST of 1509, ALT 797, alkaline phosphatase of 194. The total protein elevated at 9.5 with an albumin of 3.1. Globulin are high at 6.4. The ratio is 0.5 which is low. Urinalysis essentially unremarkable. Blood cultures, urine cultures were done. They are pending. Chest x-ray, the official result is pending, however, I did review the films and it appears to be clear without any infiltrate or any abnormalities noted. IMPRESSION AND PLAN: Unfortunate 52-year-old woman with autoimmune hepatitis with markedly elevated liver function tests and also remote history of a POSSIBLE ALLERGY TO CORTISONE, was admitted for steroid therapy while here in the hospital to monitor for any allergic reaction. Thus far she did not have any to the IV Solu-Medrol, however, Benadryl was given as well. Therefore this morning, we will hold the Benadryl. We will give her the prednisone and then keep her here over the next 6 to 7 hours to see if there is any reaction. If there is no reaction to the prednisone, she will be discharged home at 3 to 4 p.m. today and then she will continue to take 60 mg once a day. I did instruct her that if she does have any kind of mild allergic reaction, to take Benadryl p.o. at home and also contact us if there is any reaction of any significance that we need to be aware of and she seems to be very reliant patient, and I am sure she will follow with that. We will follow up. Dewayne Ames MD
== END 2018-09-29 12:47 | disposition home or self-care (01) ==
LOC: H.ER 20:33 → H.ERHOLD 22:25 → H.MEDSURG1 09-29 00:50
PROVIDERS: ADMIT Internal Medicine; ATTEND Internal Medicine
DX: K75.4 Autoimmune hepatitis (principal); K80.20 Calculus of gallbladder without cholecystitis without obstruction; K76.0 Fatty (change of) liver, not elsewhere classified; E03.9 Hypothyroidism, unspecified; E11.9 Type 2 diabetes mellitus without complications; E78.00 Pure hypercholesterolemia, unspecified; L29.9 Pruritus, unspecified; Z80.0 Family history of malignant neoplasm of digestive organs; Z82.49 Family history of ischemic heart disease and other diseases of the circulatory system; Z90.710 Acquired absence of both cervix and uterus; D64.9 Anemia, unspecified
CPT/HCPCS: 36415; 71046; 80053; 81003; 85025; 85610; 85730; 87040; 87086; 93005; 96374; 96375; 99282; G0378; J1200; J2930; J7509